=== PATIENT | female | born 1955 | race Caucasian/White ===

== ENCOUNTER 2016-10-08 08:58 | Inpatient (IN) | payer OTHER ==
[2016-10-08] MEDS ORDERED: SODIUM CHLORIDE 0.9% 10 ML FLUSH FLUSH PRN (09:07)
[2016-10-08] MEDS ORDERED: ASPIRIN 325 MG TAB PO ONE (09:08)
[2016-10-08] MEDS ORDERED: HYDROmorphone 1 MG INJECTION IV ONE (09:08)
[2016-10-08 09:15] LABS: ABG Draw Site Left Radial; ABG Draw Tech SI; ALLEN'S TEST PASS; BEb 7.5 (+/- 2); TCO2 39.4 MMOL/L (23-27)
[2016-10-08] MEDS ORDERED: KETOROLAC TROMETH 30 MG/ML VIAL IV ONE (09:16)
[2016-10-08] MEDS ORDERED: LORAZEPAM 2 MG/ML VIAL ONE (09:16)
[2016-10-08] MEDS ORDERED: KETOROLAC TROMETH 30 MG/ML VIAL ONE (09:16)
[2016-10-08] MEDS ORDERED: LORAZEPAM 2 MG/ML VIAL IV ONE (09:16)
--- NOTE | 2016-10-08 09:22 | EDPRACDOC ---
<Anatoliy Damico - Last Filed: 10/08/16 11:25> - History of Present Illness Onset: 3 DAYS HPI: PT PRESENTS TODAY WITH INCREASINGLY WORSE SHOB X 3 DAYS. PT HAS SEVERE COPD, WEARS 3 LITERS AT HOME AND CPAP AT NIGHT. EMS WAS CALLED AND PT WAS INITIALLY PUT ON NON-REBREATHER, THEN CPAP MACHINE, GIVEN 125 SOLUMEDROL AND DUONEB X 2. PT CURRENTLY SPEAKING IN 1 WORD SENTENCES. PT REPORTS INTERMITTENT SUBJECTIVE FEVERS AND ROGERS. PT DENIES CP, ABD PAIN, VOMITING/DIARRHEA. Shortness of Breath: Severe Relevant History: Reports: COPD Cough: Reports: Productive Rhinorrhea: Reports: None Ear Symptoms: Reports: None SOB Worsens with: Reports: Exertion SOB Improves with: Reports: Nothing Associated Signs and symptoms: Reports: Cough, Fever, Headache, Nausea <Keli Jackson - Last Filed: 10/08/16 11:41> - General Information Stated Complaint: BREATHING DIFFICULTY Time Seen by Provider: 10/08/16 09:06 Home Medications: Home Medications Budesonide/Formoterol Fumarate [Symbicort 160-4.5 Mcg Inhaler] 2 puff INH BID # 1 02/19/16 Fenofibrate [Tricor] 145 mg PO DAILY 03/31/16 Hydrocodone/Acetaminophen [Vicodin Es 7.5-300 mg Tablet] 1 tab PO Q6H PRN Lisinopril [Prinivil] 20 mg PO DAILY 03/31/16 Meloxicam [Mobic] 7.5 mg PO BID 03/31/16 Triamterene - Hctz [Maxzide 75/50] 1 tab PO DAILY 03/31/16 Albuterol/Ipratropium Neb [Duoneb] 3 ml NEB TID 10/08/16 Allopurinol 300 mg PO DAILY 10/08/16 Alprazolam 2 mg PO TID PRN 10/08/16 Fluticasone Propionate [Flonase Nasal [place]] 1 spray JORGITO BID 10/08/16 Glipizide [Glipizide ER] 2.5 mg PO DAILY 10/08/16 Montelukast Sodium [Singulair] 10 mg PO BID 10/08/16 Promethazine [Phenergan] 25 mg PO DAILY PRN 10/08/16 Theophylline [Ananda-Dur] 300 mg PO QID 10/08/16 Trazodone HCl 100 mg PO QHS 10/08/16 Allergies/Adverse Reactions: Allergies Allergy/AdvReac Type Severity Reaction Status Date / Time levofloxacin [From Levaquin] Allergy Edema-Oral/ Verified 10/08/16 09:10 Lip morphine Allergy See Verified 10/08/16 09:10 Comments - Treatment Prior to ED Arrival 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 Meds/Treatments Given CPAP EMS Treatment ALS IV Yes <Anatoliy Damico - Last Filed: 10/08/16 11:25> ED Past Medical History - History Reviewed Yes Nurses notes reviewed and agree except as marked - Patient Medical History Cardiac History: Reports: Hypertension, Hypercholesterolemia, Valvular Heart Disease Respiratory History: Reports: Asthma, COPD, Pneumonia, Emphysema GI/ History: Reports: Renal Disease (Chronic renal insufficiency by lab review.), Urinary Tract Infection, Gastroesophageal Reflux Musculoskeletal History: Reports: Arthritis, Gout, Osteoarthritis Psychological History: Reports: Depression, Anxiety. Denies: Substance Use Disorder Systemic History: Reports: Diabetes. Denies: Cancer Surgical History: Reports: Cholecystectomy (1975), Other (Bilateral salpingectomy 1977) - Family Medical History Reports: Hypertension (Mother, father and brother), Diabetes (Mother, father and brother.), Cancer (Nonspecified cancer in patient's mother.), Cardiac Disorders (Non-specified heart disease in father and paternal grandfather.), Respiratory Disorders (Asthma in mother and brother) - Social Medical History Smoking Status: Former smoker Social History: Denies: Substance Use Disorder <Keli Jackson - Last Filed: 10/08/16 11:41> EDM Review of Systems - Review of Systems ROS Negative Except as Marked: Yes All systems reviewed and were negative except as marked ROS Unobtainable: Yes Review of systems cannot be obtained due to the patient's medical condition Constitutional: Fever Ears: No Symptoms Reported Throat: No Symptoms Reported Nose: No Symptoms Reported Respiratory: Cough, Shortness of Breath, Wheezing Cardiovascular: No Symptoms Reported Gastrointestinal: Nausea Genitourinary: No Symptoms Reported Neurological: Headache Musculoskeletal: No Symptoms Reported Integumentary: No Symptoms Reported <Keli Jackson - Last Filed: 10/08/16 11:41> - Physical Exam Last recorded Vital Signs: Last Vital Signs Temp 101.0 F H 10/08/16 09:20 Pulse 120 H 10/08/16 10:33 Resp 22 10/08/16 10:33 BP 139/68 10/08/16 10:33 Pulse Ox 94 10/08/16 10:33 Oxygen Pulse Oxygen Saturation 94 O2 Device BiPAP Oxygen Flow Rate 3 Fraction of Inspired Oxygen ( FIO2) <Anatoliy Damico - Last Filed: 10/08/16 11:25> - Physical Exam Constitutional: Alert, Distress (TACHTPNEIC) Oriented to: Time, Person, Place Last recorded Vital Signs: Oxygen Pulse Oxygen Saturation O2 Device Oxygen Flow Rate Fraction of Inspired Oxygen ( FIO2) - HEENT Head: Normal Eye Exam: Normal Neck: Normal, Denies Pain, Midline - Respiratory/Cardiovascular Respiratory: Diminished, Rhonchi, Tachypnea, Wheezes Cardiovascular: Tachycardia - GI Palpation: Normal Tenderness: Non tender - Musculoskeletal Back: Normal Extremities: Normal - Integumentary Skin: Normal Lymphatics: Normal - Neurologic Mood Description: Anxious, Appropriate Thought: Coherent Perception: Normal <Keli Jackson - Last Filed: 10/08/16 11:41> ED SOB MDM - Re-evaluation Re-evaluation 1 Re-evaluation Time: 11:25 Re-evaluation: PT IMPROVED ON BIPAP. RESTING COMFORTABLY. - Results Result Diagrams: 10/08/16 09:08 10/08/16 09:08 Results: WBC 8.5 xk/uL (3.8-10.8) 10/08/16 09:08 RBC 4.55 xM/uL (4.20-5.40) 10/08/16 09:08 Hgb 13.2 g/dL (12.0-16.0) 10/08/16 09:08 Hct 41.3 % (36-47) 10/08/16 09:08 MCV 91 fL (81-99) 10/08/16 09:08 MCH 28.9 pg (27-32) 10/08/16 09:08 MCHC 31.9 g/dl (33-36) L 10/08/16 09:08 RDW 14.9 % (11.5-14.5) H 10/08/16 09:08 Plt Count 167 xk/uL (130-400) 10/08/16 09:08 MPV 7.5 fL (7.4-10.4) 10/08/16 09:08 Neut % (Auto) 63.6 % (45-76) 10/08/16 09:08 Lymph % (Auto) 23.4 % (17-44) 10/08/16 09:08 [place] % (Auto) 10.7 % (3-10) H 10/08/16 09:08 Eos % (Auto) 1.8 % (0-5) 10/08/16 09:08 Baso % (Auto) 0.5 % (0-2) 10/08/16 09:08 Absolute Neuts (auto) 5.36 xk/uL (1.7-8.2) 10/08/16 09:08 Absolute Lymphs (auto) 1.96 xk/uL (0.65-4.75) 10/08/16 09:08 PT 9.9 SEC (9.2-11.2) 10/08/16 09:08 INR 1.0 10/08/16 09:08 APTT 24.7 SEC (22-35) 10/08/16 09:08 Puncture Site Left radial 10/08/16 09:07 pH 7.290 pH UNITS (7.35-7.45) L 10/08/16 09:07 pCO2 77.0 mmHg (35-45) H* 10/08/16 09:07 pO2 59.0 mmHg (80-100) L 10/08/16 09:07 HCO3 37.0 MMOL/L (22-26) H 10/08/16 09:07 Total CO2 39.4 MMOL/L (23-27) H 10/08/16 09:07 Base Excess 7.5 (+/- 2) H 10/08/16 09:07 FiO2 % 2 l/m nc 10/08/16 09:07 Specimen Drawn By Si 10/08/16 09:07 Sodium 140 mEq/L (137-146) 10/08/16 09:08 Potassium 3.8 mEq/L (3.5-5.1) 10/08/16 09:08 Chloride 93 mEq/L (98-107) L 10/08/16 09:08 Carbon Dioxide 38 mMOL/L (22-33) H 10/08/16 09:08 Anion Gap 13 mEq/L (8-16) 10/08/16 09:08 BUN 23 MG/DL (7-17) H 10/08/16 09:08 Creatinine 0.70 MG/DL (0.52-1.04) 10/08/16 09:08 Estimated GFR (MDRD) > 60 mL/min (>=60) 10/08/16 09:08 Glucose 306 MG/DL (70-99) H 10/08/16 09:08 Calculated Osmolality 285 MOs/Kg (270-290) 10/08/16 09:08 Lactic Acid 2.5 mEq/L (0.7-2.1) H 10/08/16 09:08 Calcium 9.9 MG/DL (8.4-10.2) 10/08/16 09:08 Corrected Calcium 10.5 MG/DL (8.4-10.2) H 10/08/16 09:08 Total Bilirubin 0.4 MG/DL (0.2-1.3) 10/08/16 09:08 AST 21 IU/L (14-36) 10/08/16 09:08 ALT 36 IU/L (9-52) 10/08/16 09:08 Alkaline Phosphatase 88 IU/L (55-165) 10/08/16 09:08 Troponin I < 0.01 ng/mL (<.04) 10/08/16 09:08 Total Protein 7.1 G/DL (6.3-8.2) 10/08/16 09:08 Albumin 3.4 G/DL (3.5-5.0) L 10/08/16 09:08 Urine Color Yellow 10/08/16 09:25 Urine Clarity Sl cldy 10/08/16 09:25 Urine pH 6.0 (5.0-8.0) 10/08/16 09:25 Ur Specific [place] 1.030 (1.003-1.035) 10/08/16 09:25 Urine Protein 1+ (NEG/TRACE) H 10/08/16 09:25 Urine Glucose (UA) Trace (NEGATIVE) 10/08/16 09:25 Urine Ketones Neg (NEGATIVE) 10/08/16 09:25 Urine Occult Blood 1+ (NEG/TRACE) H 10/08/16 09:25 Urine Nitrite Neg (NEGATIVE) 10/08/16 09:25 Urine Bilirubin Neg (NEGATIVE) 10/08/16 09:25 Urine Urobilinogen <2.0 MG/DL (0-1) 10/08/16 09:25 Ur Leukocyte Esterase Neg (NEGATIVE) 10/08/16 09:25 Urine RBC 2-5 (0-5) 10/08/16 09:25 Urine WBC 2-5 (0-5) 10/08/16 09:25 Ur Epithelial Cells Occ 10/08/16 09:25 Amorphous Sediment 1+ 10/08/16 09:25 Urine Bacteria Few (NEG/FEW) 10/08/16 09:25 Granular Casts 0-2 (NONE) H 10/08/16 09:25 Urine Mucus Sm amt (NEG/OCC) 10/08/16 09:25 Lab Results 10/08/16 10/08/16 10/08/16 09:25 09:08 09:08 WBC RBC Hgb Hct MCV MCH MCHC RDW Plt Count MPV Neut % (Auto) Lymph % (Auto) [place] % (Auto) Eos % (Auto) Baso % (Auto) Absolute Neuts (auto) Absolute Lymphs (auto) PT 9.9 INR 1.0 APTT 24.7 Puncture Site pH pCO2 pO2 HCO3 Total CO2 Base Excess FiO2 % Specimen Drawn By Sodium Potassium Chloride Carbon Dioxide Anion Gap BUN Creatinine Estimated GFR (MDRD) Glucose Calculated Osmolality Lactic Acid 2.5 H Calcium Corrected Calcium Total Bilirubin AST ALT Alkaline Phosphatase Troponin I Total Protein Albumin Urine Color Yellow Urine Clarity Sl cldy Urine pH 6.0 Ur Specific [place] 1.030 Urine Protein 1+ H Urine Glucose (UA) Trace Urine Ketones Neg Urine Occult Blood 1+ H Urine Nitrite Neg Urine Bilirubin Neg Urine Urobilinogen <2.0 Ur Leukocyte Esterase Neg Urine RBC 2-5 Urine WBC 2-5 Ur Epithelial Cells Occ Amorphous Sediment 1+ Urine Bacteria Few Granular Casts 0-2 H Urine Mucus Sm amt 10/08/16 10/08/16 10/08/16 09:08 09:08 09:07 WBC 8.5 RBC 4.55 Hgb 13.2 Hct 41.3 MCV 91 MCH 28.9 MCHC 31.9 L RDW 14.9 H Plt Count 167 MPV 7.5 Neut % (Auto) 63.6 Lymph % (Auto) 23.4 [place] % (Auto) 10.7 H Eos % (Auto) 1.8 Baso % (Auto) 0.5 Absolute Neuts (auto) 5.36 Absolute Lymphs (auto) 1.96 PT INR APTT Puncture Site Left radial pH 7.290 L pCO2 77.0 H* pO2 59.0 L HCO3 37.0 H Total CO2 39.4 H Base Excess 7.5 H FiO2 % 2 l/m nc Specimen Drawn By Si Sodium 140 Potassium 3.8 Chloride 93 L Carbon Dioxide 38 H Anion Gap 13 BUN 23 H Creatinine 0.70 Estimated GFR (MDRD) > 60 Glucose 306 H Calculated Osmolality 285 Lactic Acid Calcium 9.9 Corrected Calcium 10.5 H Total Bilirubin 0.4 AST 21 ALT 36 Alkaline Phosphatase 88 Troponin I < 0.01 Total Protein 7.1 Albumin 3.4 L Urine Color Urine Clarity Urine pH Ur Specific [place] Urine Protein Urine Glucose (UA) Urine Ketones Urine Occult Blood Urine Nitrite Urine Bilirubin Urine Urobilinogen Ur Leukocyte Esterase Urine RBC Urine WBC Ur Epithelial Cells Amorphous Sediment Urine Bacteria Granular Casts Urine Mucus <Anatoliy Damico - Last Filed: 10/08/16 11:25> - Results Result Diagrams: 10/08/16 09:08 10/08/16 09:08 Results: Puncture Site Left radial 10/08/16 09:07 pH 7.290 pH UNITS (7.35-7.45) L 10/08/16 09:07 pCO2 77.0 mmHg (35-45) H* 10/08/16 09:07 pO2 59.0 mmHg (80-100) L 10/08/16 09:07 HCO3 37.0 MMOL/L (22-26) H 10/08/16 09:07 Total CO2 39.4 MMOL/L (23-27) H 10/08/16 09:07 Base Excess 7.5 (+/- 2) H 10/08/16 09:07 FiO2 % 2 l/m nc 10/08/16 09:07 Specimen Drawn By Si 10/08/16 09:07 Lab Results 10/08/16 09:07 Puncture Site Left radial pH 7.290 L pCO2 77.0 H* pO2 59.0 L HCO3 37.0 H Total CO2 39.4 H Base Excess 7.5 H FiO2 % 2 l/m nc Specimen Drawn By Si - EKG EKG #1 EKG Time: :08 -: Yes EKG interpreted by me Rate: bpm: 128 [place]: RAD Rhythm: ST Block: None Hypertrophy: None ST: Normal <Keli Jackson - Last Filed: 10/08/16 11:41> - Departure Yes I personally saw and evaluated the patient. Disposition: Admit IP To This Hospital - Physician Consulted Hospitalist Time Called: 10:51 Provider Called: Garrett Rees Time Bearing Ring [employer]er Returned Call: 10:52 <Anatoliy Damico - Last Filed: 10/08/16 11:25> - Departure Disposition: Admit IP To This Hospital Decision to Admit Time: 10:00 Decision to admit date: 10/08/16 Decision to admit: from ED <Keli Jackson - Last Filed: 10/08/16 11:41> - Departure Condition: Fair Final Diagnosis: Poorly controlled diabetes mellitus, Acute respiratory failure with hypoxia and hypercapnia, Acute respiratory acidosis Respiratory failure, [id number] Qualifiers: Respiratory failure complication: hypoxia and hypercapnia Qualified Code(s): J96.21 - Acute and chronic respiratory failure with hypoxia
[2016-10-08 09:42] LABS: BLOOD UREA NITROGEN 23 MG/DL (7-17); CALC CORRECTED 10.5 MG/DL (8.4-10.2); CALCIUM 9.9 MG/DL (8.4-10.2); CALCULATED OSMOLALITY 285 MOs/Kg (270-290); CHLORIDE 93 mEq/L (98-107); GLUCOSE 306 MG/DL (70-99); SODIUM LEVEL 140 mEq/L (137-146); TOTAL PROTEIN 7.1 G/DL (6.3-8.2)
--- NOTE | 2016-10-08 09:42 | DIRPT ---
CLINICAL DATA: Patient with chest pain. Shortness of breath. EXAM: PORTABLE CHEST 1 VIEW COMPARISON: Chest radiograph 06/01/2016. FINDINGS: Monitoring leads overlie the patient. Stable cardiac and mediastinal contours. Small left pleural effusion heterogeneous opacities within the left lung base. Minimal atelectasis right lung base. IMPRESSION: Chronic scarring within the left greater than right lung bases. Possible small left pleural effusion. Electronically Signed By: Ender Pino M.D. On: 10/08/2016 09:39
[2016-10-08 09:46] LABS: AMORPHOUS 1+; LEUKOCYTES/URINE NEG (NEGATIVE); NITRITE/URINE NEG (NEGATIVE); URINE OCCULT BLOOD 1+ (NEG/TRACE)
[2016-10-08 09:46] LABS: AUTOMATED BASOPHIL 0.5 % (0-2); AUTOMATED EOSINOPHIL 1.8 % (0-5); AUTOMATED LYMPH 23.4 % (17-44); AUTOMATED MONOCYTE 10.7 % (3-10); AUTOMATED NEUTROPHIL 63.6 % (45-76); MPV 7.5 fL (7.4-10.4)
[2016-10-08 09:51] LABS: PARTIAL THROMB. TIME 24.7 SEC (22-35)
[2016-10-08] MEDS ORDERED: ACETAMINOPHEN 325 MG/TAB TABLET PO ONE (10:01)
[2016-10-08] MEDS ORDERED: ACETAMINOPHEN 650 MG SUPP PR ONE (10:15)
[2016-10-08] MEDS ORDERED: NS 1,000 ML IV ONE (10:39)
[2016-10-08] MEDS ORDERED: GUAIFENESIN 200 MG/10 ML UDC PO PRN (11:41)
[2016-10-08] MEDS ORDERED: DEXTROSE 25 GM/50 ML PFS IV PRN (11:41)
[2016-10-08] MEDS ORDERED: Albuterol/Ipratropium Neb 3 ML NEB NEB PRN (11:41)
[2016-10-08] MEDS ORDERED: BISACODYL 5 MG TAB PO PRN (11:41)
[2016-10-08] MEDS ORDERED: PROMETHAZINE 25 MG/ML VIAL IV PRN (11:41)
[2016-10-08] MEDS ORDERED: ACETAMINOPHEN 325 MG/TAB TABLET PO PRN (11:41)
[2016-10-08] MEDS ORDERED: GLUCOSE (ORAL GEL) 15 GM TUBE PO PRN (11:41)
[2016-10-08] MEDS ORDERED: DOCUSATE-SENNA CONCENTRATE TAB PO PRN (11:41)
[2016-10-08] MEDS ORDERED: ACETAMINOPHEN 650 MG SUPP PR PRN (11:41)
[2016-10-08] MEDS ORDERED: BENZONATATE 100 MG PERLES PO PRN (11:41)
[2016-10-08] MEDS ORDERED: GLUCAGON 1 MG VIAL SQ PRN (11:41)
[2016-10-08] MEDS ORDERED: SODIUM CHLORIDE 0.9% 3 ML FLUSH FLUSH PRN (11:41)
[2016-10-08] MEDS ORDERED: ENALAPRILAT 1.25 MG/ML VIAL IV PRN (11:57)
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
[2016-10-08 12:20] LABS: ALLEN'S TEST PASS; BEb 5.6 (+/- 2); TCO2 38.6 MMOL/L (23-27)
[2016-10-08 12:21] LABS: ABG Draw Site Left Radial; ABG Draw Tech SI
[2016-10-08 12:22] LABS: MODE BIPAP 14/6 RATE
[2016-10-08] MEDS ORDERED: ETOMIDATE 20 MG/10 ML VIAL IV ONE (12:24)
[2016-10-08] MEDS ORDERED: SUCCINYLCHOLINE 20 MG/ML INJ 10 ML VIAL IV ONE (12:24)
[2016-10-08] MEDS ORDERED: FLUTICASONE PROPIONATE 16 GM BOT NAS SCH (13:00)
[2016-10-08] MEDS: D5-1/2NS/KCL 20 mEq 1,000 ML IV SCH ×2 (13:20→23:40)
[2016-10-08] MEDS: CEFTRIAXONE 1 GM in D5W 100 ML IV SCH (13:20)
[2016-10-08] MEDS: METHYLPREDNISOLONE 125 MG/2 ML VIAL IV SCH ×2 (13:21→17:29)
[2016-10-08] MEDS: NICOTINE 21 MG PATCH TOP SCH (13:23)
[2016-10-08] MEDS: Albuterol/Ipratropium Neb 3 ML NEB NEB SCH ×2 (13:37→20:52)
[2016-10-08] MEDS ORDERED: Vaccine Screening Complete SCH (14:00)
[2016-10-08] MEDS: AZITHROMYCIN 500 MG in D5W 250 ML IV SCH (14:20)
[2016-10-08] MEDS: FUROSEMIDE 40 MG/4 ML VIAL IV SCH (16:03)
[2016-10-08] MEDS: ENOXAPARIN 60 MG/0.6 ML PFS SQ SCH (17:30)
[2016-10-08] MEDS: REGULAR INSULIN 100 UNITS/ML - 3 ML VIAL SQ SCH ×2 (17:36→20:11)
[2016-10-08] MEDS: SODIUM CHLORIDE 0.9% 3 ML FLUSH FLUSH SCH (17:39)
[2016-10-08] MEDS: LORAZEPAM 2 MG/ML VIAL IV PRN (20:08)
[2016-10-08] MEDS: FLUTICASONE PROPIONATE 16 GM BOT NAS SCH (20:22)
[2016-10-09] MEDS: METHYLPREDNISOLONE 125 MG/2 ML VIAL IV SCH ×4 (00:25→16:49)
[2016-10-09] MEDS: CHLORHEXIDINE (HIBICLENS) 4 OZ BOTTLE TOP SCH ×2 (02:11→20:14)
[2016-10-09] MEDS: Albuterol/Ipratropium Neb 3 ML NEB NEB SCH ×4 (02:13→21:52)
[2016-10-09 05:22] LABS: MPV 7.4 fL (7.4-10.4)
[2016-10-09 05:33] LABS: BLOOD UREA NITROGEN 24 MG/DL (7-17); CALCULATED OSMOLALITY 288 MOs/Kg (270-290); CHLORIDE 95 mEq/L (98-107); GLUCOSE 330 MG/DL (70-99); SODIUM LEVEL 141 mEq/L (137-146)
[2016-10-09] MEDS: SODIUM CHLORIDE 0.9% 3 ML FLUSH FLUSH SCH ×2 (05:38→16:51)
[2016-10-09] MEDS: REGULAR INSULIN 100 UNITS/ML - 3 ML VIAL SQ SCH ×4 (05:46→20:23)
--- NOTE | 2016-10-09 07:57 | DIRPT ---
CLINICAL DATA: Pneumonia. EXAM: PORTABLE CHEST 1 VIEW COMPARISON: 10/08/2016, 02/12/2016, 5 06/2016, 07/14/2015. CT 03/31/2016. FINDINGS: Cardiomegaly with bilateral pulmonary vascular prominence. Persistent low lung volumes with basilar atelectasis. Left base pleural-parenchymal thickening most consistent with scarring. Small left pleural effusion cannot be excluded . IMPRESSION: 1. Cardiomegaly with mild pulmonary vascular prominence. 2. Low lung volumes with persistent left lung base pleural parenchymal scarring. Electronically Signed By: Jimmie Castanon On: 10/09/2016 07:54
[2016-10-09] MEDS: FUROSEMIDE 40 MG/4 ML VIAL IV SCH ×2 (08:37→16:48)
[2016-10-09] MEDS: D5-1/2NS/KCL 20 mEq 1,000 ML IV SCH (08:37)
[2016-10-09] MEDS: FLUTICASONE PROPIONATE 16 GM BOT NAS SCH ×2 (08:37→20:17)
[2016-10-09] MEDS: LORAZEPAM 2 MG/ML VIAL IV PRN (08:37)
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
[2016-10-09 09:23] LABS: ABG Draw Site Left Radial; ALLEN'S TEST PASS; TCO2 44.9 MMOL/L (23-27)
[2016-10-09 09:24] LABS: BI-PAP 20/8 cm H2O
[2016-10-09] MEDS ORDERED: ALPRAZOLAM 2 MG PO PRN (09:29)
[2016-10-09] MEDS ORDERED: HYDROCODONE 5 MG/ACETAMIN 325 MG TAB PO PRN (09:42)
[2016-10-09] MEDS ORDERED: LISINOPRIL 20 MG TAB PO SCH (10:00)
[2016-10-09] MEDS ORDERED: MONTELUKAST SODIUM 10 MG TAB PO SCH (10:00)
[2016-10-09] MEDS: TRIAMTERENE PO SCH (10:18)
[2016-10-09] MEDS: HCTZ PO SCH (10:18)
[2016-10-09] MEDS: NS/KCl 20 mEq 1,000 ML IV SCH ×2 (10:19→22:23)
[2016-10-09] MEDS: CEFTRIAXONE 1 GM in D5W 100 ML IV SCH (11:26)
[2016-10-09] MEDS: THEOPHYLLINE 300 MG PO SCH ×3 (11:29→20:16)
[2016-10-09] MEDS: NICOTINE 21 MG PATCH TOP SCH (11:29)
[2016-10-09] MEDS: AZITHROMYCIN 500 MG in D5W 250 ML IV SCH (13:28)
[2016-10-09] MEDS ORDERED: INSULIN DETEMIR 100 UNITS/ML PEN SQ SCH (16:00)
[2016-10-09] MEDS: ENOXAPARIN 60 MG/0.6 ML PFS SQ SCH (16:51)
[2016-10-09] MEDS: HYDROCODONE 5 MG/ACETAMIN 325 MG TAB PO PRN (17:02)
[2016-10-09] MEDS: Docusate Sodium 100 MG CAP PO SCH (20:11)
[2016-10-09] MEDS: BENZONATATE 100 MG PERLES PO SCH (20:11)
[2016-10-09] MEDS: DOCUSATE-SENNA CONCENTRATE TAB PO SCH (20:12)
[2016-10-09] MEDS: MONTELUKAST SODIUM 10 MG TAB PO SCH (20:13)
[2016-10-09] MEDS: TRAZODONE 100 MG TAB PO SCH (20:18)
[2016-10-09] MEDS: INSULIN DETEMIR 100 UNITS/ML PEN SQ SCH (20:22)
[2016-10-09] MEDS ORDERED: Non-Formulary Medication ITEM (Budesonide/Formoterol Fumarate [Symbicort 160-4.5 Mcg Inh INH SCH (21:00)
[2016-10-09] MEDS: BUDESONIDE 0.5 MG NEB NEB SCH ×2 (21:56→22:01)
[2016-10-09] MEDS: BUDESONIDE 0.25 MG NEB NEB SCH (22:06)
[2016-10-10] MEDS: METHYLPREDNISOLONE 125 MG/2 ML VIAL IV SCH ×4 (00:49→16:49)
[2016-10-10] MEDS: ALPRAZOLAM 0.5 MG TAB PO PRN (02:47)
[2016-10-10] MEDS: Albuterol/Ipratropium Neb 3 ML NEB NEB SCH ×4 (03:38→21:00)
[2016-10-10] MEDS: GLIPIZIDE XL 2.5 MG TAB PO SCH (05:32)
[2016-10-10] MEDS: BENZONATATE 100 MG PERLES PO SCH ×3 (05:33→20:34)
[2016-10-10] MEDS: SODIUM CHLORIDE 0.9% 3 ML FLUSH FLUSH SCH ×2 (05:37→16:49)
[2016-10-10] MEDS: REGULAR INSULIN 100 UNITS/ML - 3 ML VIAL SQ SCH ×4 (05:38→20:28)
[2016-10-10 05:55] LABS: ALLEN'S TEST PASS; BEb 12.9 (+/- 2); TCO2 43.8 MMOL/L (23-27)
[2016-10-10 06:03] LABS: ABG Draw Site Right Brachial
[2016-10-10 06:04] LABS: MODE BIPAP 20/8 RATE
[2016-10-10 06:04] LABS: AUTOMATED BASOPHIL 0.2 % (0-2); AUTOMATED LYMPH 7.1 % (17-44); AUTOMATED MONOCYTE 4.8 % (3-10); AUTOMATED NEUTROPHIL 87.9 % (45-76); MPV 7.6 fL (7.4-10.4)
[2016-10-10 06:51] LABS: BLOOD UREA NITROGEN 43 MG/DL (7-17); CALCIUM 8.8 MG/DL (8.4-10.2); CALCULATED OSMOLALITY 294 MOs/Kg (270-290); CHLORIDE 91 mEq/L (98-107); GLUCOSE 323 MG/DL (70-99); SODIUM LEVEL 141 mEq/L (137-146); THEOPHYLLINE LEVEL 9.4 MCG/ML (10-20)
[2016-10-10] MEDS: BUDESONIDE 0.5 MG NEB NEB SCH ×2 (07:39→20:59)
[2016-10-10] MEDS: BUDESONIDE 0.25 MG NEB NEB SCH ×2 (07:42→22:18)
[2016-10-10] MEDS: FUROSEMIDE 40 MG/4 ML VIAL IV SCH ×3 (08:01→20:42)
[2016-10-10] MEDS: ROFLUMILAST 500 MCG TAB PO SCH (08:02)
[2016-10-10] MEDS: LOSARTAN POTASSIUM 25 MG TAB PO SCH (08:02)
[2016-10-10] MEDS: DULOXETINE 60 MG CAPSULE PO SCH (08:02)
[2016-10-10] MEDS: FLUTICASONE PROPIONATE 16 GM BOT NAS SCH ×2 (08:03→20:22)
[2016-10-10] MEDS: HCTZ PO SCH (08:03)
[2016-10-10] MEDS: THEOPHYLLINE 300 MG PO SCH ×2 (08:03→20:34)
[2016-10-10] MEDS: TRIAMTERENE PO SCH (08:03)
[2016-10-10] MEDS: METOPROLOL (TOPROL-XL) 50 MG TAB PO SCH (08:03)
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
[2016-10-10] MEDS: NS/KCl 20 mEq 1,000 ML IV SCH (10:53)
[2016-10-10] MEDS: MAGNESIUM OXIDE 400 MG TAB PO SCH (14:02)
[2016-10-10] MEDS: CEFTRIAXONE 1 GM in D5W 100 ML IV SCH (14:03)
[2016-10-10] MEDS: CHOLECALCIFEROL 1000 UNITS TAB PO SCH (14:03)
[2016-10-10] MEDS: NICOTINE 21 MG PATCH TOP SCH (14:04)
[2016-10-10] MEDS: AZITHROMYCIN 500 MG in D5W 250 ML IV SCH (16:24)
[2016-10-10] MEDS: ENOXAPARIN 60 MG/0.6 ML PFS SQ SCH (16:49)
[2016-10-10] MEDS: ONDANSETRON HCL 4 MG/2 ML VIAL IV PRN (16:50)
--- NOTE | 2016-10-10 17:54 | HIMCONS ---
DATE OF CONSULT: REQUESTING PHYSICIAN: Parris Sanderson MD REASON FOR CONSULTATION: Respiratory failure. HISTORY OF PRESENT ILLNESS: The patient is a 61-year-old white lady, who has been a patient of [facility]. The patient has chronic COPD, has been on 3 L nasal cannula oxygen. She used to see me in my office, but has not seen me in a while. The patient according to herself was not feeling well for the past 3 weeks prior to her admission. She was given outpatient prednisone which did not help her, and eventually 3 days prior to her admission, her shortness of breath started getting worse along with headaches. She was also given Solu-Medrol and nebulizers en route to the hospital. She was on 100% non-rebreather and a blood gas showed a pH of 7.29 with CO2 of 77, and PO2 of 59. The patient has been using oxygen at home and also uses CPAP for her sleep apnea while she is sleeping at night. She was admitted for respiratory failure and was placed on antibiotics. Currently, the patient is feeling somewhat better as compared to when she came in; however, she remains on high doses of steroids along with antibiotics. PAST MEDICAL HISTORY: Significant for hypertension, hypercholesterolemia, valvular heart disease, COPD with history of pneumonia, history of chronic renal insufficiency, urinary tract infection, gastroesophageal reflux disease, gout, osteoarthritis, diabetes, depression, and anxiety. SURGICAL HISTORY: Significant for cholecystectomy in 1975 and bilateral salpingo-oophorectomy in 1977. ALLERGIES: THE PATIENT IS ALLERGIC TO LEVAQUIN AND MORPHINE. MEDICATIONS: In the chart were noted. FAMILY HISTORY: Significant for father having hypertension, diabetes, and nonspecific heart disease. Mother having asthma, hypertension, diabetes, cancer. SOCIAL HISTORY: The patient has been a former smoker. No history of alcohol or drug abuse. REVIEW OF SYSTEMS: Entire review of systems is negative except for those mentioned in the history of present illness. PHYSICAL EXAMINATION: VITAL SIGNS: Temperature is 97.5 degrees Fahrenheit, pulse is 82, respiratory rate is 22, blood pressure 127/82, pulse ox 99% on current 35% BiPAP. CHEST: Diffuse bilateral wheezing. HEART: S1, S2. Regular with pansystolic murmur. EXTREMITIES: No clubbing, cyanosis, or edema. ABDOMEN: Soft and nontender. Bowel sounds present. Hepatosplenomegaly is absent. NEURO: Grossly nonfocal. The patient is moving all extremities. LABORATORY DATA: White count 10.5, hemoglobin is 12.7, hematocrit 39.8, and platelets are 199. Blood gas showed a pH of 7.37, pCO2 of 72, PO2 of 69 with 20/8 BiPAP with 35% oxygen. Sodium 141, potassium 4.0, chloride 91, CO2 of 38, BUN 43, creatinine 0.8, glucose is 323, magnesium is 1.0 and calcium level is 9.4. IMPRESSION: 1. Vnfsc-go-oyuksdo respiratory failure. 2. Chronic obstructive pulmonary disease with exacerbation. 3. Diabetes. 4. Obstructive sleep apnea. 5. Hypertension. PLAN: I think the patient is on appropriate antibiotics at this time. She is on Rocephin and Zithromax along with vancomycin because of her MRSA PCR being positive. I will continue the current antibiotics that she needs to stay in negative balance as her chest x-ray shows possible pulmonary vascular congestion. Given 40 mg of Lasix q.12 hours. She is still positive today and I would increase the Lasix 40 mg IV q.8 hours. We will check BMP, ABG, and chest x-ray in the morning. Continue 20/8 BiPAP with 35% oxygen and Solu-Medrol 80 mg IV q.6 hours. Would try to cut it down in the morning. Continue BiPAP while the patient is in ICU as noninvasive ventilation. She remains critically ill and she is in danger of getting worse and getting intubated. I would follow the patient closely. Critical care time spent on the patient was approximately 90 minutes. [id number]
[2016-10-10] MEDS: INSULIN DETEMIR 100 UNITS/ML PEN SQ SCH (20:31)
[2016-10-10] MEDS: TRAZODONE 100 MG TAB PO SCH (20:33)
[2016-10-10] MEDS: Docusate Sodium 100 MG CAP PO SCH (20:33)
[2016-10-10] MEDS: DOCUSATE-SENNA CONCENTRATE TAB PO SCH (20:34)
[2016-10-10] MEDS: MONTELUKAST SODIUM 10 MG TAB PO SCH (20:34)
[2016-10-11] MEDS: NS/KCl 20 mEq 1,000 ML IV SCH ×2 (00:09→13:11)
[2016-10-11] MEDS: METHYLPREDNISOLONE 125 MG/2 ML VIAL IV SCH ×4 (00:10→17:47)
[2016-10-11] MEDS: ALPRAZOLAM 0.5 MG TAB PO PRN ×3 (02:39→21:01)
[2016-10-11] MEDS: Albuterol/Ipratropium Neb 3 ML NEB NEB SCH ×4 (03:06→19:53)
[2016-10-11 04:53] LABS: ALLEN'S TEST PASS; BEb 17.2 (+/- 2); TCO2 49.3 MMOL/L (23-27)
[2016-10-11 04:55] LABS: ABG Draw Site Left Radial; ABG Draw Tech BKL; BI-PAP 20/8 RATE 10 cm H2O
[2016-10-11] MEDS: CHLORHEXIDINE (HIBICLENS) 4 OZ BOTTLE TOP SCH (06:12)
[2016-10-11] MEDS: FUROSEMIDE 40 MG/4 ML VIAL IV SCH (06:13)
[2016-10-11] MEDS: SODIUM CHLORIDE 0.9% 3 ML FLUSH FLUSH SCH ×2 (06:14→17:47)
[2016-10-11] MEDS: GLIPIZIDE XL 2.5 MG TAB PO SCH (06:15)
[2016-10-11] MEDS: BENZONATATE 100 MG PERLES PO SCH ×3 (06:15→20:33)
[2016-10-11] MEDS: REGULAR INSULIN 100 UNITS/ML - 3 ML VIAL SQ SCH ×4 (06:15→20:31)
[2016-10-11 06:42] LABS: AUTOMATED BASOPHIL 0.7 % (0-2); AUTOMATED LYMPH 8.9 % (17-44); AUTOMATED MONOCYTE 5.1 % (3-10); AUTOMATED NEUTROPHIL 85.3 % (45-76); MPV 7.7 fL (7.4-10.4)
[2016-10-11 06:45] LABS: BLOOD UREA NITROGEN 47 MG/DL (7-17); CALCIUM 7.8 MG/DL (8.4-10.2); CALCULATED OSMOLALITY 283 MOs/Kg (270-290); CHLORIDE 88 mEq/L (98-107); GLUCOSE 266 MG/DL (70-99); SODIUM LEVEL 136 mEq/L (137-146)
--- NOTE | 2016-10-11 07:59 | DIRPT ---
CLINICAL DATA: Respiratory failure. EXAM: PORTABLE CHEST 1 VIEW COMPARISON: 10/09/2016. FINDINGS: Cardiomegaly with pulmonary vascular congestion and bilateral pulmonary interstitial prominence with bilateral pleural effusions, left side greater right again noted. Findings have progressed slightly from prior exam. Findings consistent congestive heart failure. Basilar pneumonia cannot be excluded. IMPRESSION: 1. Congestive heart failure with pulmonary interstitial edema and bilateral pleural effusions. Findings have progressed slightly from prior exam. 2. Bibasilar pneumonia cannot be excluded. Electronically Signed By: Jimmie Castanon On: 10/11/2016 07:56
--- NOTE | 2016-10-11 08:06 | PCM.PULM ---
Chief Complaint: Respiratory failure acute on chronic with hypercapnia and hypoxia COPD exacerbation Pneumonia Obstructive sleep apnea Hypoxia patient alert and responsive with mild distress requiring wearing BIPAP, clinically somewhat improved than yesterday Current complaints:SOB,HUTCHINSON,cough,wheeze. Medication list reviewed:yes Notes reviewed:yes Events from last night noted and discussed with Clinical Staff DVT/GI prophylaxis:yes - Physical Examination Vital Signs and I&O: Last Vital Signs Temp 98.5 F 10/11/16 03:00 Pulse 74 10/11/16 06:00 Resp 16 10/11/16 08:00 BP 147/67 10/11/16 06:00 Pulse Ox 97 10/11/16 08:00 Oxygen Pulse Oxygen Saturation 97 O2 Device BiPAP Oxygen Flow Rate Fraction of Inspired Oxygen ( 35 FIO2) Intake & Output 10/08/16 10/09/16 10/10/16 10/11/16 23:59 23:59 23:59 23:59 Intake Total 2288 2841 2677 1299 Output Total 4000 3700 750 900 Balance -8809 -263 4227 399 Patient's weight 105.2 kg 105.2 kg 104.19 kg 100.924 kg General: Alert, Oriented x3, Cooperative, Mild distress, Obese, Weakness, Fatigue Respiratory: Diminished, Wheezes (Occasional) Cardiovascular: Regular rate, Regular rate and rhythm, Normal S1, No Gallops, Rubs/Murmurs, Normal S2, Good Pedal Pulses (Dp pulses 2+ bilaterally) GI: Normal bowel sounds, Soft, Non tender, No hepatospenomegaly, No masses, Obese Extremities/Musculoskeletal: Normal pulses Skin: Warm,Dry and Intact, No rashes, No breakdown, No significant lesion Neurological: Normal Steady Gait, Normal speech, Cranial nerves 3-12 NL Psych/Mental Status: Appropriate, Cooperative Result Diagrams: 10/11/16 05:40 10/11/16 05:40 Labs (last 24 hours): Laboratory Results - last 24 hr 10/10/16 10/10/16 10/10/16 12:29 16:57 20:27 WBC RBC Hgb Hct MCV MCH MCHC RDW Plt Count MPV Neut % (Auto) Lymph % (Auto) Harney % (Auto) Eos % (Auto) Baso % (Auto) Absolute Neuts (auto) Absolute Lymphs (auto) Puncture Site pH pCO2 pO2 HCO3 Total CO2 Base Excess FiO2 % Mode BiPAP Specimen Drawn By Sodium Potassium Chloride Carbon Dioxide Anion Gap BUN Creatinine Estimated GFR (MDRD) Glucose POC Capillary Glucose 346 H 263 H 189 H Calculated Osmolality Calcium 10/11/16 10/11/16 10/11/16 04:50 05:40 05:40 WBC 9.3 RBC 4.01 L Hgb 11.5 L Hct 36.0 MCV 90 MCH 28.7 MCHC 31.9 L RDW 14.9 H Plt Count 193 MPV 7.7 Neut % (Auto) 85.3 H Lymph % (Auto) 8.9 L Harney % (Auto) 5.1 Eos % (Auto) 0.0 Baso % (Auto) 0.7 Absolute Neuts (auto) 7.91 Absolute Lymphs (auto) 0.74 Puncture Site Left radial pH 7.370 pCO2 81.0 H* pO2 79.0 L HCO3 46.8 H Total CO2 49.3 H Base Excess 17.2 H FiO2 % 35 Mode BiPAP 20/8 rate 10 Specimen Drawn By Bkl Sodium 136 L Potassium 3.7 Chloride 88 L Carbon Dioxide 39 H Anion Gap 13 BUN 47 H Creatinine 0.80 Estimated GFR (MDRD) > 60 Glucose 266 H POC Capillary Glucose Calculated Osmolality 283 Calcium 7.8 L 10/11/16 05:41 WBC RBC Hgb Hct MCV MCH MCHC RDW Plt Count MPV Neut % (Auto) Lymph % (Auto) Harney % (Auto) Eos % (Auto) Baso % (Auto) Absolute Neuts (auto) Absolute Lymphs (auto) Puncture Site pH pCO2 pO2 HCO3 Total CO2 Base Excess FiO2 % Mode BiPAP Specimen Drawn By Sodium Potassium Chloride Carbon Dioxide Anion Gap BUN Creatinine Estimated GFR (MDRD) Glucose POC Capillary Glucose 274 H Calculated Osmolality Calcium Lab/DI/Studies Reviewed: EKG: NSR, NO ST or ST wave changes noted Cxray: 1view Chest x-ray was seen personally patient seems to have bilateral effusions new fusion developing on the right side with pulmonary vascular congestion and pulmonary edema with bibasilar atelectasis and persistent left-sided infiltrate versus effusion Medications: Nicotine (Nicoderm) 21 mg TOP Q24H [facility] Stop: 10/22/16 12:59 Last Admin: 10/10/16 14:04 Dose: 21 mg Vancomycin HCl 2,000 mg/ (Dextrose) 520 mls @ 260 mls/hr IV Q12H [facility] Stop: 10/13/16 10:59 Last Admin: 10/11/16 00:10 Dose: 260 mls/hr Enoxaparin Sodium (Lovenox) 50 mg SQ Q24H [facility] Stop: 10/22/16 17:59 Last Admin: 10/10/16 16:49 Dose: 50 mg Furosemide (Lasix) 40 mg IV Q8 [facility] Stop: 10/24/16 21:59 Last Admin: 10/11/16 06:13 Dose: 40 mg Guaifenesin (Robitussin) 10 ml PO Q6H PRN PRN Reason: Cough - First Option Stop: 10/22/16 16:59 Insulin Detemir (Levemir) 15 units SQ QHS [facility] Stop: 10/23/16 20:59 Last Admin: 10/10/16 20:31 Dose: 15 units Insulin Human Regular (Humulin R) 0 units SQ ACHS [facility] PRN Reason: Protocol Stop: 10/24/16 16:59 Last Admin: 10/11/16 06:15 Dose: 12 units Acetaminophen (Tylenol Tablet) 650 mg PO Q6H PRN; Protocol PRN Reason: Mild Pain or Fever above 100.4 Stop: 10/22/16 16:59 Acetaminophen/Hydrocodone Bitart (Hydrocodone 5 Mg/Acetamin 325 Mg) 1.5 tab PO Q12H PRN PRN Reason: moderate to severe pain Stop: 10/23/16 15:34 Last Admin: 10/09/16 17:02 Dose: 1.5 tab Albuterol/Ipratropium (Duoneb) 3 ml NEB Q2H PRN PRN Reason: Wheezing Stop: 10/22/16 16:59 Alprazolam (Xanax) 2 mg PO TID PRN PRN Reason: Anxiety-1ST Stop: 10/23/16 09:38 Last Admin: 10/11/16 02:39 Dose: 2 mg Aspirin (Ecotrin) 81 mg PO DAILY [facility] Stop: 10/24/16 08:59 Last Admin: 10/10/16 08:02 Dose: 81 mg Azithromycin 500 mg/ Dextrose 250 mls @ 250 mls/hr IV Q24H [facility] Stop: 10/13/16 13:59 Last Admin: 10/10/16 16:24 Dose: 250 mls/hr Benzonatate (Tessalon) 200 mg PO TID PRN PRN Reason: Cough - Alternative Stop: 10/22/16 16:59 Benzonatate (Tessalon) 100 mg PO TID [facility] Stop: 10/23/16 20:59 Last Admin: 10/11/16 06:15 Dose: 100 mg Budesonide (Pulmicort) 0.5 mg NEB RTBID [facility] Stop: 10/23/16 19:59 Last Admin: 10/11/16 08:07 Dose: 0.5 mg Ceftriaxone Sodium 1 gm/ (Dextrose) 100 mls @ 200 mls/hr IV Q24H [facility] Stop: 10/15/16 16:59 Last Admin: 10/10/16 14:03 Dose: 200 mls/hr Cholecalciferol (Vitamin D) 2,000 units PO DAILY@1200 [facility] Stop: 10/24/16 11:59 Last Admin: 10/10/16 14:03 Dose: Not Given Duloxetine HCl (Cymbalta) 60 mg PO DAILY [facility] Stop: 10/24/16 08:59 Last Admin: 10/10/16 08:02 Dose: 60 mg Enalaprilat (Vasotec) 1.25 mg IV Q6H PRN PRN Reason: SBP Above 170 Stop: 10/22/16 16:59 Lorazepam (Ativan) 1 mg IV Q6H PRN PRN Reason: Anxiety or Agitation-ALT Stop: 10/22/16 16:59 Last Admin: 10/09/16 08:37 Dose: 1 mg Losartan Potassium (Cozaar) 25 mg PO DAILY [facility] Stop: 10/24/16 08:59 Last Admin: 10/10/16 08:02 Dose: 25 mg Methylprednisolone Sodium Succinate (Solu-Medrol) 80 mg IV Q6H [facility] Stop: 10/22/16 16:59 Last Admin: 10/11/16 06:12 Dose: 80 mg Metoprolol Succinate (Toprol Xl) 50 mg PO DAILY [facility] Stop: 10/24/16 08:59 Last Admin: 10/10/16 08:03 Dose: 50 mg Montelukast Sodium (Singulair) 10 mg PO HS [facility] Stop: 10/23/16 16:59 Last Admin: 10/10/16 20:34 Dose: Not Given Potassium Chloride/Sodium Chloride (Normal Saline-Kcl 20 Meq Per 1000 Ml) 1, 000 mls @ 80 mls/hr IV Q12H [facility] Stop: 10/23/16 16:59 Last Admin: 10/11/16 00:09 Dose: 80 mls/hr Roflumilast (Daliresp) 500 mcg PO DAILY [facility] Stop: 10/24/16 08:59 Last Admin: 10/10/16 08:02 Dose: 500 mcg Promethazine HCl (Phenergan) 12.5 mg IV Q6H PRN; Protocol PRN Reason: Nausea/Vomiting - Alternative Stop: 10/22/16 16:59 Theophylline (Ananda-Dur) 300 mg PO BID [facility] Stop: 10/23/16 16:59 Last Admin: 10/10/16 20:34 Dose: Not Given Triamterene/HCTZ (Maxzide 75/50) 1 tab PO DAILY [facility] Stop: 10/23/16 09:59 Last Admin: 10/10/16 08:03 Dose: 1 tab Trazodone HCl (Desyrel) 100 mg PO QHS [facility] Stop: 10/23/16 20:59 Last Admin: 10/10/16 20:33 Dose: Not Given - Assessment/Plan (1) Acute respiratory failure with hypoxia and hypercapnia Acute J96.01 - ACUTE RESPIRATORY FAILURE WITH HYPOXIA; J96.02 - ACUTE RESPIRATORY FAILURE WITH HYPERCAPNIA Comment/Plan: Patient seems to be improving slowly I would continue the current antibiotics nebulizers DVT GI prophylaxis Solu-Medrol oxygen and BiPAP I think patient can come off for BiPAP for 2 3 hours and be back on BiPAP during the day as a pH seems to be relatively stable her CO2 seems to be high however because the stable pH I would attempt to do 3 hours on an 3 hours off of BiPAP during the day and keep her on BiPAP all night I had a prolonged discussion with the nursing staff regarding this issue chest x-ray shows pulmonary vascular congestion and patient has been on Lasix 40 mg IV q.8 hours and continues to have positive fluid balance I would start the patient on Lasix drip and would follow the creatinine closely patient remains critically ill in the view of her worsening chest x-ray would keep her in ICU (2) Acute exacerbation of chronic obstructive airways disease Acute J44.1 - CHRONIC OBSTRUCTIVE PULMONARY DISEASE W (ACUTE) EXACERBATION Comment/Plan: Continue steroids and antibiotics (3) Bacterial pneumonia Acute J15.9 - UNSPECIFIED BACTERIAL PNEUMONIA Comment/Plan: Continue the current antibiotics would repeat a chest x-ray and a blood gas in the morning (4) Hypoxia Acute R09.02 - HYPOXEMIA Comment/Plan: Continue oxygen with BiPAP 3 hours on an 3 hours off during the day (5) Obstructive sleep apnea (adult) (pediatric) Acute G47.33 - OBSTRUCTIVE SLEEP APNEA (ADULT) (PEDIATRIC) Comment/Plan: Continue BiPAP while patient is sleeping I personally saw and evaluated the patient.: Yes Total Face to Face Time: 35 minutes Case Care Discussed with: Patient, Nursing Staff Education/Counseling Given To: Patient Education/Counseling Given Regarding: Diagnosis, Treatment, Prognosis, Follow Up , Disposition Plan
[2016-10-11] MEDS: BUDESONIDE 0.5 MG NEB NEB SCH ×2 (08:07→19:57)
[2016-10-11] MEDS: BUDESONIDE 0.25 MG NEB NEB SCH ×2 (08:13→19:58)
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
[2016-10-11] MEDS: ONDANSETRON HCL 4 MG/2 ML VIAL IV PRN ×2 (11:38→20:40)
[2016-10-11] MEDS: CEFTRIAXONE 1 GM in D5W 100 ML IV SCH (11:38)
[2016-10-11] MEDS: AZITHROMYCIN 500 MG in D5W 250 ML IV SCH (15:46)
[2016-10-11] MEDS: NICOTINE 21 MG PATCH TOP SCH (15:46)
[2016-10-11] MEDS: LOSARTAN POTASSIUM 25 MG TAB PO SCH (15:47)
[2016-10-11] MEDS: METOPROLOL (TOPROL-XL) 50 MG TAB PO SCH (15:47)
[2016-10-11] MEDS: Furosemide 100 MG in NS 40 ML IV SCH (15:47)
[2016-10-11] MEDS: FLUTICASONE PROPIONATE 16 GM BOT NAS SCH ×2 (15:48→20:31)
[2016-10-11] MEDS: ROFLUMILAST 500 MCG TAB PO SCH (15:48)
[2016-10-11] MEDS: DULOXETINE 60 MG CAPSULE PO SCH (15:48)
[2016-10-11] MEDS: HCTZ PO SCH (15:48)
[2016-10-11] MEDS: TRIAMTERENE PO SCH (15:48)
[2016-10-11] MEDS: THEOPHYLLINE 300 MG PO SCH ×2 (15:49→20:47)
[2016-10-11] MEDS: CHOLECALCIFEROL 1000 UNITS TAB PO SCH (15:49)
[2016-10-11] MEDS: MAGNESIUM OXIDE 400 MG TAB PO SCH (15:49)
[2016-10-11] MEDS: ENOXAPARIN 60 MG/0.6 ML PFS SQ SCH (17:47)
[2016-10-11 18:37] LABS: A-1-ANTITRYPSIN 153 mg/dL (90-200)
[2016-10-11] MEDS: Docusate Sodium 100 MG CAP PO SCH (20:30)
[2016-10-11] MEDS: TRAZODONE 100 MG TAB PO SCH (20:30)
[2016-10-11] MEDS: MONTELUKAST SODIUM 10 MG TAB PO SCH (20:32)
[2016-10-11] MEDS: DOCUSATE-SENNA CONCENTRATE TAB PO SCH (20:32)
[2016-10-11] MEDS: INSULIN DETEMIR 100 UNITS/ML PEN SQ SCH (20:32)
[2016-10-12] MEDS: METHYLPREDNISOLONE 125 MG/2 ML VIAL IV SCH ×4 (00:33→16:19)
[2016-10-12] MEDS: Furosemide 100 MG in NS 40 ML IV SCH ×3 (00:54→20:47)
[2016-10-12] MEDS: Albuterol/Ipratropium Neb 3 ML NEB NEB SCH ×4 (01:31→21:26)
[2016-10-12] MEDS: LORAZEPAM 2 MG/ML VIAL IV PRN (03:17)
[2016-10-12 04:19] LABS: ABG Draw Site Right Brachial; ALLEN'S TEST PASS; BEb 22.1 (+/- 2); TCO2 52.3 MMOL/L (23-27)
[2016-10-12 04:20] LABS: BI-PAP 20/8 cm H2O
[2016-10-12] MEDS: BENZONATATE 100 MG PERLES PO SCH ×3 (05:39→20:46)
[2016-10-12] MEDS: CHLORHEXIDINE (HIBICLENS) 4 OZ BOTTLE TOP SCH ×2 (05:39→20:49)
[2016-10-12] MEDS: SODIUM CHLORIDE 0.9% 3 ML FLUSH FLUSH SCH ×2 (05:40→16:18)
[2016-10-12] MEDS: GLIPIZIDE XL 2.5 MG TAB PO SCH (05:40)
[2016-10-12] MEDS: REGULAR INSULIN 100 UNITS/ML - 3 ML VIAL SQ SCH ×4 (05:40→21:53)
[2016-10-12 05:47] VITALS: BMI 44.9
[2016-10-12 06:10] LABS: MPV 8.1 fL (7.4-10.4)
[2016-10-12 06:35] LABS: BLOOD UREA NITROGEN 59 MG/DL (7-17); CALCIUM 8.7 MG/DL (8.4-10.2); CALCULATED OSMOLALITY 286 MOs/Kg (270-290); CHLORIDE 82 mEq/L (98-107); GLUCOSE 253 MG/DL (70-99); SODIUM LEVEL 135 mEq/L (137-146)
[2016-10-12 08:06] LABS: SEG NEUTROPHIL 78 % (45-76)
[2016-10-12] MEDS: THEOPHYLLINE 300 MG PO SCH ×2 (08:09→20:46)
[2016-10-12] MEDS: LOSARTAN POTASSIUM 25 MG TAB PO SCH (08:10)
[2016-10-12] MEDS: DULOXETINE 60 MG CAPSULE PO SCH (08:10)
[2016-10-12] MEDS: FLUTICASONE PROPIONATE 16 GM BOT NAS SCH ×2 (08:12→20:48)
[2016-10-12] MEDS: HCTZ PO SCH (08:12)
[2016-10-12] MEDS: TRIAMTERENE PO SCH (08:12)
[2016-10-12] MEDS: BUDESONIDE 0.5 MG NEB NEB SCH ×3 (08:48→22:05)
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
[2016-10-12] MEDS: BUDESONIDE 0.25 MG NEB NEB SCH ×2 (10:19→22:04)
[2016-10-12] MEDS: MAGNESIUM OXIDE 400 MG TAB PO SCH ×2 (10:58→16:14)
[2016-10-12] MEDS: METOPROLOL (TOPROL-XL) 50 MG TAB PO SCH (10:58)
[2016-10-12] MEDS: Magnesium Sulfate 2 gm/D5W 2 GM/50 ML RTU IV SCH ×2 (10:58→14:58)
[2016-10-12] MEDS: ROFLUMILAST 500 MCG TAB PO SCH (10:59)
[2016-10-12] MEDS ORDERED: Medication Special Instructions SCH ×2 (11:00)
[2016-10-12] MEDS ORDERED: ONDANSETRON HCL 4 MG ODT TAB PO PRN (11:00)
[2016-10-12] MEDS: CEFTRIAXONE 1 GM in D5W 100 ML IV SCH (11:30)
[2016-10-12] MEDS: MetFORMIN, EXT REL 500 MG TAB PO SCH ×2 (11:40→16:16)
[2016-10-12] MEDS: CHOLECALCIFEROL 1000 UNITS TAB PO SCH (11:40)
[2016-10-12] MEDS: Linezolid 600 mg/300 ml Premix 600 MG/300 ML RTU IV SCH ×2 (13:11→22:52)
[2016-10-12] MEDS: NICOTINE 21 MG PATCH TOP SCH (13:16)
--- NOTE | 2016-10-12 14:11 | PCM.PULM ---
Chief Complaint: Patient in Intensive care unit with no acute distress. Breathing is improving. On oxygen via nasal cannula and wears BIPAP at night and PRN Medication list and notes reviewed:yes DVT/GI prophylaxis:yes - Physical Examination Vital Signs and I&O: Last Vital Signs Temp 98.5 F 10/12/16 11:00 Pulse 83 10/12/16 13:00 Resp 22 10/12/16 13:00 BP 114/54 L 10/12/16 13:00 Pulse Ox 90 L 10/12/16 13:00 Oxygen Pulse Oxygen Saturation 90 O2 Device Nasal Cannula Oxygen Flow Rate 3 Fraction of Inspired Oxygen ( 35 FIO2) Intake & Output 10/09/16 10/10/16 10/11/16 10/12/16 23:59 23:59 23:59 23:59 Intake Total 2841 2677 2181 716 Output Total 3700 750 3500 1700 Balance -859 1927 -1319 -984 Patient's weight 105.2 kg 104.19 kg 100.924 kg 100.924 kg General: Alert, Oriented x3, No acute distress, Obese, Fatigue Respiratory: Diminished Cardiovascular: Regular rate, Regular rate and rhythm, Normal S1, No Gallops, Rubs/Murmurs, Normal S2 GI: Normal bowel sounds, Soft, Non tender, No hepatospenomegaly, No masses, Obese Extremities/Musculoskeletal: Normal pulses Skin: Warm,Dry and Intact, No rashes, No breakdown, No significant lesion Neurological: Normal Steady Gait, Normal speech, Strength at 5/5 X4 ext, Normal tone, Cranial nerves 3-12 NL Psych/Mental Status: Cooperative Result Diagrams: 10/12/16 05:35 10/12/16 05:35 Labs (last 24 hours): Laboratory Results - last 24 hr 10/12/16 10/12/16 10/12/16 04:15 05:24 05:35 WBC 11.7 H RBC 4.19 L Hgb 12.2 Hct 37.6 MCV 90 MCH 29.1 MCHC 32.4 L RDW 14.7 H Plt Count 238 MPV 8.1 Neut % (Auto) Cancelled Lymph % (Auto) Cancelled [place] % (Auto) Cancelled Eos % (Auto) Cancelled Baso % (Auto) Cancelled Absolute Neuts (auto) Cancelled Absolute Lymphs (auto) Cancelled Seg Neuts % (Manual) 78 H Band Neutrophils % 6 H Lymphocytes % (Manual) 12 L Monocytes % (Manual) 4 Absolute Neutrophils 9.83 H Absolute Lymphocytes 1.40 Platelet Estimate Occ giant platelet RBC Morphology Norm Puncture Site Right brachial pH 7.470 H pCO2 69.0 H* pO2 72.0 L HCO3 50.2 H Total CO2 52.3 H Base Excess 22.1 H FiO2 % .35 Mode BiPAP 20/8 Specimen Drawn By Baras Sodium Potassium Chloride Carbon Dioxide Anion Gap BUN Creatinine Estimated GFR (MDRD) Glucose POC Capillary Glucose 261 H Calculated Osmolality Calcium Magnesium Urrzo-7-Qkgpvmzkgry Alpha-1-AT Phenotype Random Vancomycin 10/12/16 10/12/16 05:35 12:16 WBC RBC Hgb Hct MCV MCH MCHC RDW Plt Count MPV Neut % (Auto) Lymph % (Auto) [place] % (Auto) Eos % (Auto) Baso % (Auto) Absolute Neuts (auto) Absolute Lymphs (auto) Seg Neuts % (Manual) Band Neutrophils % Lymphocytes % (Manual) Monocytes % (Manual) Absolute Neutrophils Absolute Lymphocytes Platelet Estimate RBC Morphology Puncture Site pH pCO2 pO2 HCO3 Total CO2 Base Excess FiO2 % Mode BiPAP Specimen Drawn By Sodium 135 L Potassium 3.9 Chloride 82 L Carbon Dioxide 42 H Anion Gap 15 BUN 59 H Creatinine 1.10 H Estimated GFR (MDRD) 50 L Glucose 253 H POC Capillary Glucose 295 H Calculated Osmolality 286 Calcium 8.7 Magnesium 1.50 L Ciwyf-1-Uaoiiccsaun Alpha-1-AT Phenotype Random Vancomycin 17.0 Lab/DI/Studies Reviewed: EKG: NSR, NO ST or ST wave changes noted Medications: Nicotine (Nicoderm) 21 mg TOP Q24H [facility] Stop: 10/22/16 12:59 Last Admin: 10/10/16 14:04 Dose: 21 mg Guaifenesin (Robitussin) 10 ml PO Q6H PRN PRN Reason: Cough - First Option Stop: 10/22/16 16:59 Insulin Detemir (Levemir) 15 units SQ QHS [facility] Stop: 10/23/16 20:59 Last Admin: 10/10/16 20:31 Dose: 15 units Insulin Human Regular (Humulin R) 0 units SQ ACHS [facility] PRN Reason: Protocol Stop: 10/24/16 16:59 Last Admin: 10/11/16 06:15 Dose: 12 units Acetaminophen (Tylenol Tablet) 650 mg PO Q6H PRN; Protocol PRN Reason: Mild Pain or Fever above 100.4 Stop: 10/22/16 16:59 Acetaminophen/Hydrocodone Bitart (Hydrocodone 5 Mg/Acetamin 325 Mg) 1.5 tab PO Q12H PRN PRN Reason: moderate to severe pain Stop: 10/23/16 15:34 Last Admin: 10/09/16 17:02 Dose: 1.5 tab Albuterol/Ipratropium (Duoneb) 3 ml NEB Q2H PRN PRN Reason: Wheezing Stop: 10/22/16 16:59 Aspirin (Ecotrin) 81 mg PO DAILY [facility] Stop: 10/24/16 08:59 Last Admin: 10/10/16 08:02 Dose: 81 mg Azithromycin 500 mg/ Dextrose 250 mls @ 250 mls/hr IV Q24H [facility] Stop: 10/13/16 13:59 Last Admin: 10/10/16 16:24 Dose: 250 mls/hr Benzonatate (Tessalon) 200 mg PO TID PRN PRN Reason: Cough - Alternative Stop: 10/22/16 16:59 Benzonatate (Tessalon) 100 mg PO TID [facility] Stop: 10/23/16 20:59 Last Admin: 10/11/16 06:15 Dose: 100 mg Ceftriaxone Sodium 1 gm/ (Dextrose) 100 mls @ 200 mls/hr IV Q24H [facility] Stop: 10/15/16 16:59 Last Admin: 10/10/16 14:03 Dose: 200 mls/hr Cholecalciferol (Vitamin D) 2,000 units PO DAILY@1200 [facility] Stop: 10/24/16 11:59 Last Admin: 10/10/16 14:03 Dose: Not Given Duloxetine HCl (Cymbalta) 60 mg PO DAILY [facility] Stop: 10/24/16 08:59 Last Admin: 10/10/16 08:02 Dose: 60 mg Enalaprilat (Vasotec) 1.25 mg IV Q6H PRN PRN Reason: SBP Above 170 Stop: 10/22/16 16:59 Losartan Potassium (Cozaar) 25 mg PO DAILY [facility] Stop: 10/24/16 08:59 Last Admin: 10/10/16 08:02 Dose: 25 mg Methylprednisolone Sodium Succinate (Solu-Medrol) 80 mg IV Q6H [facility] Stop: 10/22/16 16:59 Last Admin: 10/11/16 06:12 Dose: 80 mg Metoprolol Succinate (Toprol Xl) 50 mg PO DAILY [facility] Stop: 10/24/16 08:59 Last Admin: 10/10/16 08:03 Dose: 50 mg Montelukast Sodium (Singulair) 10 mg PO HS [facility] Stop: 10/23/16 16:59 Last Admin: 10/10/16 20:34 Dose: Not Given Roflumilast (Daliresp) 500 mcg PO DAILY [facility] Stop: 10/24/16 08:59 Last Admin: 10/10/16 08:02 Dose: 500 mcg Promethazine HCl (Phenergan) 12.5 mg IV Q6H PRN; Protocol PRN Reason: Nausea/Vomiting - Alternative Stop: 10/22/16 16:59 Theophylline (Ananda-Dur) 300 mg PO BID [facility] Stop: 10/23/16 16:59 Last Admin: 10/10/16 20:34 Dose: Not Given Trazodone HCl (Desyrel) 100 mg PO QHS [facility] Stop: 10/23/16 20:59 Last Admin: 10/10/16 20:33 Dose: Not Given Azithromycin 500 mg/ Dextrose 250 mls @ 250 mls/hr IV Q24H [facility] Stop: 10/12/16 18:00 Last Admin: 10/12/16 16:02 Dose: 250 mls/hr Budesonide (Pulmicort) 0.5 mg NEB RTBID [facility] Stop: 10/23/16 19:59 Last Admin: 10/12/16 08:48 Dose: 0.5 mg Ceftriaxone Sodium 1 gm/ (Dextrose) 100 mls @ 200 mls/hr IV Q24H [facility] Stop: 10/14/16 18:00 Last Admin: 10/12/16 11:30 Dose: 200 mls/hr Enoxaparin Sodium (Lovenox) 50 mg SQ Q24H [facility] Stop: 10/22/16 17:59 Last Admin: 10/12/16 16:15 Dose: 50 mg Furosemide 100 mg/ Sodium (Chloride) 50 mls @ 5 mls/hr IV Q10H [facility]; 10 MG/HR PRN Reason: Protocol Stop: 10/25/16 16:59 Last Admin: 10/12/16 11:32 Dose: 5 mls/hr Linezolid (Zyvox 600 Mg/300 Ml Premix) 600 mg in 300 mls @ 150 mls/hr IV Q12H [facility] Stop: 10/15/16 16:59 Last Admin: 10/12/16 13:11 Dose: 150 mls/hr Triamterene/HCTZ (Maxzide 75/50) 1 tab PO DAILY [facility] Stop: 10/23/16 09:59 Last Admin: 10/12/16 08:12 Dose: 1 tab - Assessment/Plan (1) Acute respiratory failure with hypoxia and hypercapnia Acute J96.01 - ACUTE RESPIRATORY FAILURE WITH HYPOXIA; J96.02 - ACUTE RESPIRATORY FAILURE WITH HYPERCAPNIA Comment/Plan: Patient breathing is improving. not much of wheezing. Would cut steroid down to 40mg Q8h. Would get an ABG and cxray in am. Would continue BIPAP at night and prn, supplemental oxygen, IV lasix, patient was placed on linezolid along with Rocephin I would discontinue Rocephin and start Zithromax instead to cover atypical bacteria since there are no cultures back yet would repeat a chest x- ray in the morning, Duo nebulizer treatment, DVT/GI prophylaxis and other supportive care at this time. (2) Acute exacerbation of chronic obstructive airways disease Acute J44.1 - CHRONIC OBSTRUCTIVE PULMONARY DISEASE W (ACUTE) EXACERBATION Comment/Plan: Improving. Would cut steroid down. Continue current medication therapy and full supportive care (3) Bacterial pneumonia Acute J15.9 - UNSPECIFIED BACTERIAL PNEUMONIA Comment/Plan: Continue the current antibiotics would get a chest x-ray and ABG in the morning (4) Hypoxia Acute R09.02 - HYPOXEMIA Comment/Plan: Improving. Continue BIPAP and supplemental oxygen PRN (5) Obstructive sleep apnea (adult) (pediatric) Acute G47.33 - OBSTRUCTIVE SLEEP APNEA (ADULT) (PEDIATRIC) Comment/Plan: Continue BiPAP while patient is sleeping and PRN I personally saw and evaluated the patient.: Yes Total Face to Face Time: 35 minutes Case Care Discussed with: Patient, Nursing Staff Education/Counseling Given To: Patient Education/Counseling Given Regarding: Diagnosis, Treatment, Prognosis, Follow Up
[2016-10-12] MEDS: AZITHROMYCIN 500 MG in D5W 250 ML IV SCH (16:02)
[2016-10-12] MEDS: ENOXAPARIN 60 MG/0.6 ML PFS SQ SCH (16:15)
[2016-10-12] MEDS: Docusate Sodium 100 MG CAP PO SCH (20:46)
[2016-10-12] MEDS: DOCUSATE-SENNA CONCENTRATE TAB PO SCH (20:46)
[2016-10-12] MEDS: MONTELUKAST SODIUM 10 MG TAB PO SCH (20:46)
[2016-10-12] MEDS: INSULIN DETEMIR 100 UNITS/ML PEN SQ SCH (20:49)
[2016-10-12] MEDS: HYDROCODONE 5 MG/ACETAMIN 325 MG TAB PO PRN (22:49)
[2016-10-12] MEDS: ALPRAZOLAM 0.5 MG TAB PO PRN (22:49)
[2016-10-12] MEDS: METHYLPREDNISOLONE 40 MG/1 ML VIAL IV SCH (22:51)
[2016-10-13] MEDS: Albuterol/Ipratropium Neb 3 ML NEB NEB SCH ×4 (02:07→20:55)
[2016-10-13] MEDS: BENZONATATE 100 MG PERLES PO SCH ×3 (05:00→21:42)
[2016-10-13] MEDS: SODIUM CHLORIDE 0.9% 3 ML FLUSH FLUSH SCH ×2 (05:01→17:49)
[2016-10-13 05:07] LABS: MPV 7.8 fL (7.4-10.4)
[2016-10-13 05:11] LABS: BLOOD UREA NITROGEN 78 MG/DL (7-17); CALCIUM 9.1 MG/DL (8.4-10.2); CALCULATED OSMOLALITY 280 MOs/Kg (270-290); CHLORIDE 76 mEq/L (98-107); GLUCOSE 162 MG/DL (70-99); SODIUM LEVEL 131 mEq/L (137-146)
[2016-10-13 05:36] LABS: ALLEN'S TEST PASS; BEb 23.9 (+/- 2); TCO2 54.2 MMOL/L (23-27)
[2016-10-13 05:38] LABS: ABG Draw Site Left Brachial
[2016-10-13 06:58] LABS: SEG NEUTROPHIL 84 % (45-76)
[2016-10-13] MEDS: Furosemide 100 MG in NS 40 ML IV SCH ×2 (06:58→15:28)
[2016-10-13] MEDS: REGULAR INSULIN 100 UNITS/ML - 3 ML VIAL SQ SCH ×4 (06:59→20:38)
[2016-10-13] MEDS: MetFORMIN, EXT REL 500 MG TAB PO SCH (06:59)
[2016-10-13] MEDS: GLIPIZIDE XL 2.5 MG TAB PO SCH (06:59)
[2016-10-13] MEDS: BUDESONIDE 0.5 MG NEB NEB SCH ×2 (07:30→20:56)
[2016-10-13] MEDS: BUDESONIDE 0.25 MG NEB NEB SCH ×2 (07:31→20:56)
--- NOTE | 2016-10-13 07:58 | PCM.PULM ---
Chief Complaint: Patient is feeling better. Breathing is improving. Uses oxygen and BIPAP prn Current medication list reviewed:yes Notes reviewed:yes - Physical Examination Vital Signs and I&O: Last Vital Signs Temp 98.0 F 10/13/16 07:46 Pulse 85 10/13/16 07:46 Resp 18 10/13/16 07:46 BP 118/65 10/13/16 07:46 Pulse Ox 92 10/13/16 07:46 Oxygen Pulse Oxygen Saturation 92 O2 Device Nasal Cannula Oxygen Flow Rate 3 Fraction of Inspired Oxygen ( 30 FIO2) Intake & Output 10/10/16 10/11/16 10/12/16 10/13/16 23:59 23:59 23:59 23:59 Intake Total 2677 2181 1795 512 Output Total 750 3500 1700 Balance 1927 -1319 95 512 Patient's weight 104.19 kg 100.924 kg 100.924 kg 99.7 kg General: Alert, Oriented x3, Cooperative, No acute distress, Fatigue Respiratory: Diminished (at bases) Cardiovascular: Regular rate, Regular rate and rhythm, Normal S1, No Gallops, Rubs/Murmurs, Normal S2 GI: Normal bowel sounds, Soft, Non tender, No hepatospenomegaly, No masses, Obese Extremities/Musculoskeletal: Normal pulses Skin: Warm,Dry and Intact, No rashes, No significant lesion Neurological: Normal Steady Gait, Normal speech, Strength at 5/5 X4 ext, Cranial nerves 3-12 NL Psych/Mental Status: Appropriate Result Diagrams: 10/13/16 04:35 10/13/16 04:35 Labs (last 24 hours): Laboratory Results - last 24 hr 10/12/16 10/12/16 10/13/16 16:16 21:21 04:35 WBC 14.2 H RBC 4.47 Hgb 13.0 Hct 39.5 MCV 88 MCH 29.0 MCHC 32.9 L RDW 14.6 H Plt Count 309 MPV 7.8 Neut % (Auto) Cancelled Lymph % (Auto) Cancelled [place] % (Auto) Cancelled Eos % (Auto) Cancelled Baso % (Auto) Cancelled Absolute Neuts (auto) Cancelled Absolute Lymphs (auto) Cancelled Seg Neuts % (Manual) 84 H Band Neutrophils % 0 Lymphocytes % (Manual) 10 L Monocytes % (Manual) 6 Absolute Neutrophils 11.93 H Absolute Lymphocytes 1.42 Platelet Estimate Norm RBC Morphology Norm Puncture Site pH pCO2 pO2 HCO3 Total CO2 Base Excess FiO2 % Specimen Drawn By Sodium Potassium Chloride Carbon Dioxide Anion Gap BUN Creatinine Estimated GFR (MDRD) Glucose POC Capillary Glucose 279 H 266 H Calculated Osmolality Calcium Gekwa-7-Fbnzbttiitz Alpha-1-AT Phenotype 10/13/16 10/13/16 10/13/16 04:35 05:11 05:30 WBC RBC Hgb Hct MCV MCH MCHC RDW Plt Count MPV Neut % (Auto) Lymph % (Auto) [place] % (Auto) Eos % (Auto) Baso % (Auto) Absolute Neuts (auto) Absolute Lymphs (auto) Seg Neuts % (Manual) Band Neutrophils % Lymphocytes % (Manual) Monocytes % (Manual) Absolute Neutrophils Absolute Lymphocytes Platelet Estimate RBC Morphology Puncture Site Left brachial pH 7.480 H pCO2 70.0 H* pO2 71.0 L HCO3 52.1 H Total CO2 54.2 H Base Excess 23.9 H FiO2 % 3 Specimen Drawn By Rakma Sodium 131 L Potassium 3.8 Chloride 76 L Carbon Dioxide 40 H Anion Gap 19 H BUN 78 H Creatinine 1.70 H D Estimated GFR (MDRD) 30 L Glucose 162 H POC Capillary Glucose 159 H Calculated Osmolality 280 Calcium 9.1 Flhtu-1-Enqikcbfjpk Alpha-1-AT Phenotype Lab/DI/Studies Reviewed: EKG: NSR, No ST or ST wave changes noted Cxray: 1 view Chest x-ray was seen personally patient seems to have unchanged x-ray from previously with minimal bilateral effusions Medications: Nicotine (Nicoderm) 21 mg TOP Q24H [facility] Stop: 10/22/16 12:59 Last Admin: 10/10/16 14:04 Dose: 21 mg Enoxaparin Sodium (Lovenox) 50 mg SQ Q24H [facility] Stop: 10/22/16 17:59 Last Admin: 10/10/16 16:49 Dose: 50 mg Guaifenesin (Robitussin) 10 ml PO Q6H PRN PRN Reason: Cough - First Option Stop: 10/22/16 16:59 Insulin Detemir (Levemir) 15 units SQ QHS [facility] Stop: 10/23/16 20:59 Last Admin: 10/10/16 20:31 Dose: 15 units Insulin Human Regular (Humulin R) 0 units SQ ACHS [facility] PRN Reason: Protocol Stop: 10/24/16 16:59 Last Admin: 10/11/16 06:15 Dose: 12 units Acetaminophen (Tylenol Tablet) 650 mg PO Q6H PRN; Protocol PRN Reason: Mild Pain or Fever above 100.4 Stop: 10/22/16 16:59 Acetaminophen/Hydrocodone Bitart (Hydrocodone 5 Mg/Acetamin 325 Mg) 1.5 tab PO Q12H PRN PRN Reason: moderate to severe pain Stop: 10/23/16 15:34 Last Admin: 10/09/16 17:02 Dose: 1.5 tab Albuterol/Ipratropium (Duoneb) 3 ml NEB Q2H PRN PRN Reason: Wheezing Stop: 10/22/16 16:59 Alprazolam (Xanax) 2 mg PO TID PRN PRN Reason: Anxiety-1ST Stop: 10/23/16 09:38 Last Admin: 10/11/16 02:39 Dose: 2 mg Aspirin (Ecotrin) 81 mg PO DAILY [facility] Stop: 10/24/16 08:59 Last Admin: 10/10/16 08:02 Dose: 81 mg Azithromycin 500 mg/ Dextrose 250 mls @ 250 mls/hr IV Q24H [facility] Stop: 10/13/16 13:59 Last Admin: 10/10/16 16:24 Dose: 250 mls/hr Benzonatate (Tessalon) 200 mg PO TID PRN PRN Reason: Cough - Alternative Stop: 10/22/16 16:59 Benzonatate (Tessalon) 100 mg PO TID [facility] Stop: 10/23/16 20:59 Last Admin: 10/11/16 06:15 Dose: 100 mg Budesonide (Pulmicort) 0.5 mg NEB RTBID [facility] Stop: 10/23/16 19:59 Last Admin: 10/11/16 08:07 Dose: 0.5 mg Cholecalciferol (Vitamin D) 2,000 units PO DAILY@1200 [facility] Stop: 10/24/16 11:59 Last Admin: 10/10/16 14:03 Dose: Not Given Duloxetine HCl (Cymbalta) 60 mg PO DAILY [facility] Stop: 10/24/16 08:59 Last Admin: 10/10/16 08:02 Dose: 60 mg Enalaprilat (Vasotec) 1.25 mg IV Q6H PRN PRN Reason: SBP Above 170 Stop: 10/22/16 16:59 Lorazepam (Ativan) 1 mg IV Q6H PRN PRN Reason: Anxiety or Agitation-ALT Stop: 10/22/16 16:59 Last Admin: 10/09/16 08:37 Dose: 1 mg Losartan Potassium (Cozaar) 25 mg PO DAILY [facility] Stop: 10/24/16 08:59 Last Admin: 10/10/16 08:02 Dose: 25 mg Metoprolol Succinate (Toprol Xl) 50 mg PO DAILY [facility] Stop: 10/24/16 08:59 Last Admin: 10/10/16 08:03 Dose: 50 mg Montelukast Sodium (Singulair) 10 mg PO HS [facility] Stop: 10/23/16 16:59 Last Admin: 10/10/16 20:34 Dose: Not Given Roflumilast (Daliresp) 500 mcg PO DAILY [facility] Stop: 10/24/16 08:59 Last Admin: 10/10/16 08:02 Dose: 500 mcg Promethazine HCl (Phenergan) 12.5 mg IV Q6H PRN; Protocol PRN Reason: Nausea/Vomiting - Alternative Stop: 10/22/16 16:59 Theophylline (Ananda-Dur) 300 mg PO BID [facility] Stop: 10/23/16 16:59 Last Admin: 10/10/16 20:34 Dose: Not Given Triamterene/HCTZ (Maxzide 75/50) 1 tab PO DAILY [facility] Stop: 10/23/16 09:59 Last Admin: 10/10/16 08:03 Dose: 1 tab Trazodone HCl (Desyrel) 100 mg PO QHS [facility] Stop: 10/23/16 20:59 Last Admin: 10/10/16 20:33 Dose: Not Given Furosemide 100 mg/ Sodium (Chloride) 50 mls @ 5 mls/hr IV Q10H [facility]; 10 MG/HR PRN Reason: Protocol Stop: 10/25/16 16:59 Last Admin: 10/12/16 11:32 Dose: 5 mls/hr Linezolid (Zyvox 600 Mg/300 Ml Premix) 600 mg in 300 mls @ 150 mls/hr IV Q12H [facility] Stop: 10/15/16 16:59 Last Admin: 10/12/16 13:11 Dose: 150 mls/hr Triamterene/HCTZ (Maxzide 75/50) 1 tab PO DAILY [facility] Stop: 10/23/16 09:59 Last Admin: 10/12/16 08:12 Dose: 1 tab Methylprednisolone Sodium Succinate (Solu-Medrol) 40 mg IV Q8H [facility] Stop: 10/27/16 00:00 Last Admin: 10/12/16 22:51 Dose: 40 mg Magnesium Oxide (Mag-Ox) 400 mg PO TIDWM [facility] Stop: 10/26/16 11:59 Last Admin: 10/13/16 09:24 Dose: 400 mg - Assessment/Plan (1) Acute respiratory failure with hypoxia and hypercapnia Acute J96.01 - ACUTE RESPIRATORY FAILURE WITH HYPOXIA; J96.02 - ACUTE RESPIRATORY FAILURE WITH HYPERCAPNIA Comment/Plan: Patient breathing is improving. not much of wheezing. Would cut steroid down to 20 mg Q8h. Would continue BIPAP at night and prn, supplemental oxygen, IV lasix , patient was placed on linezolid and Zithromax i continue Duo nebulizer treatment, DVT/GI prophylaxis and other supportive care at this time. (2) Acute exacerbation of chronic obstructive airways disease Acute J44.1 - CHRONIC OBSTRUCTIVE PULMONARY DISEASE W (ACUTE) EXACERBATION Comment/Plan: Improving. Would cut steroid down. Continue current medication therapy and full supportive care (3) Bacterial pneumonia Acute J15.9 - UNSPECIFIED BACTERIAL PNEUMONIA Comment/Plan: Continue the current antibiotics (4) Hypoxia Acute R09.02 - HYPOXEMIA Comment/Plan: Improving. Continue BIPAP and supplemental oxygen PRN (5) Obstructive sleep apnea (adult) (pediatric) Acute G47.33 - OBSTRUCTIVE SLEEP APNEA (ADULT) (PEDIATRIC) Comment/Plan: Continue BiPAP while patient is sleeping and PRN
--- NOTE | 2016-10-13 08:06 | DIRPT ---
CLINICAL DATA: Respiratory failure EXAM: PORTABLE CHEST 1 VIEW COMPARISON: 10/11/2016; 10/08/2016; 06/01/2016; 03/31/2015; chest CT -03/31/2020 FINDINGS: Examination is again degraded due to patient body habitus and portable technique. Grossly unchanged enlarged cardiac silhouette with partial obscuration of the left heart border secondary to a chronic left basilar heterogeneous/consolidative opacity favored to represent any combination of a prominent epicardial fat pad and left basilar atelectasis/scar. No new focal airspace opacities. No definite pleural effusion or pneumothorax. No evidence of edema. No acute osseus abnormalities. IMPRESSION: 1. No definite acute cardiopulmonary disease on this body habitus degraded AP portable examination. 2. Chronic left basilar opacities favored to represent a combination of atelectasis/scar and a prominent epicardial fat pad. Electronically Signed By: José Miguel Boswell M.D. On: 10/13/2016 08:03
[2016-10-13] MEDS: MAGNESIUM OXIDE 400 MG TAB PO SCH ×3 (09:24→17:47)
[2016-10-13] MEDS: TRIAMTERENE PO SCH (09:25)
[2016-10-13] MEDS: LOSARTAN POTASSIUM 25 MG TAB PO SCH (09:25)
[2016-10-13] MEDS: HCTZ PO SCH (09:25)
[2016-10-13] MEDS: THEOPHYLLINE 300 MG PO SCH ×2 (09:25→20:37)
[2016-10-13] MEDS: METOPROLOL (TOPROL-XL) 50 MG TAB PO SCH (09:25)
[2016-10-13] MEDS: ROFLUMILAST 500 MCG TAB PO SCH (09:25)
[2016-10-13] MEDS: FLUTICASONE PROPIONATE 16 GM BOT NAS SCH ×2 (09:25→20:37)
[2016-10-13] MEDS: METHYLPREDNISOLONE 40 MG/1 ML VIAL IV SCH ×3 (11:08→22:51)
[2016-10-13] MEDS: CHOLECALCIFEROL 1000 UNITS TAB PO SCH (12:09)
[2016-10-13] MEDS: Linezolid 600 mg/300 ml Premix 600 MG/300 ML RTU IV SCH ×2 (12:10→22:51)
[2016-10-13] MEDS: NICOTINE 21 MG PATCH TOP SCH (12:11)
[2016-10-13] MEDS: ONDANSETRON HCL 4 MG/2 ML VIAL IV PRN (13:55)
[2016-10-13] MEDS ORDERED: AZITHROMYCIN 500 MG in D5W 250 ML IV SCH (16:00)
--- NOTE | 2016-10-13 16:14 | GENMEDPROG ---
Subjective Note: Patient in chair responsive follows commands. Still short of breath coughing producing fair amount thick sputum no hemoptysis. Dyspneic with minimal physical exertion. Compliant with nocturnal BiPAP Notes Reviewed: Yes Events from last night noted and discussed with Clinical Staff Current Medication List: Reviewed Currently: Reports: Wheezing, HUTCHINSON, SOB, Sputum, Tobacco Use/Hx (Quit 6 years ago ) DVT Prophylaxis: Yes - Physical Examination Vital Signs and I&O: Last Vital Signs Temp 97.6 F 10/13/16 11:23 Pulse 87 10/13/16 11:23 Resp 18 10/13/16 11:23 BP 135/70 10/13/16 11:23 Pulse Ox 92 10/13/16 11:23 Oxygen Pulse Oxygen Saturation 92 O2 Device Nasal Cannula Oxygen Flow Rate 3 Fraction of Inspired Oxygen ( 30 FIO2) Intake & Output 10/10/16 10/11/16 10/12/16 10/13/16 23:59 23:59 23:59 23:59 Intake Total 2677 2181 1795 992 Output Total 750 3500 1700 Balance 1927 -1319 95 992 Patient's weight 104.19 kg 100.924 kg 100.924 kg 99.7 kg General: Alert, Oriented x3, Cooperative, Severe distress HEENT: Normal (Normocephalic, atraumatic;EOMI.Sclera white, Nares patent, without discharge or bleeding. No oropharyngeal lesions or erythema. Mucous membranes are dry.), PERRLA, EOMI Neck: Non-tender, Full range of motion, Normal Trachea alignment, Normal inspection (No cervical lymphadenopathy. No supraclavicular lymphadenopathy.), No Masses palpable, Supple Lymphatics: Normal. negative: Cervical Adenopathy, Supraclavicular Adenopathy Respiratory: Accessory Muscle Use, Diminished, Rhonchi, Wheezes (Significantly decreased today) Cardiovascular: Regular rate and rhythm (No bradycardia or tachycardia), Normal S1, No Gallops,Rubs/Murmurs, Normal S2, Good Pedal Pulses (DP pulses 2+ bilaterally) GI: Normal bowel sounds (normal active sounds), Soft (non-distended), Non tender , No hepatospenomegaly, No masses Extremities/Musculoskeletal: Normal pulses (DP pulses 2+ bilaterally) Skin: Warm,Dry and Intact, No rashes, No significant lesion Neurological: Strength at 5/5 X4 ext (Motor 5/5 throughout.), Normal tone, Cranial nerves 3-12 NL ( 2-12 grossly intact.) Psych/Mental Status: Anxious Lab/DI/Studies Reviewed: Allergies levofloxacin [From Levaquin] Allergy (Verified 10/08/16 09:10) Edema-Oral/Lip morphine Allergy (Verified 10/08/16 09:10) See Comments "shaking all over" per family 10/13/16 04:35 10/13/16 04:35 Last Vital Signs Temp 97.6 F 10/13/16 11:23 Pulse 87 10/13/16 11:23 Resp 18 10/13/16 11:23 BP 135/70 10/13/16 11:23 Pulse Ox 92 10/13/16 11:23 Abnormal Lab Results 10/12/16 10/12/16 10/13/16 16:16 21:21 04:35 WBC 14.2 H MCHC 32.9 L RDW 14.6 H Seg Neuts % (Manual) 84 H Lymphocytes % (Manual) 10 L Absolute Neutrophils 11.93 H pH pCO2 pO2 HCO3 Total CO2 Base Excess Sodium Chloride Carbon Dioxide Anion Gap BUN Creatinine Estimated GFR (MDRD) Glucose POC Capillary Glucose 279 H 266 H 10/13/16 10/13/16 10/13/16 04:35 05:11 05:30 WBC MCHC RDW Seg Neuts % (Manual) Lymphocytes % (Manual) Absolute Neutrophils pH 7.480 H pCO2 70.0 H* pO2 71.0 L HCO3 52.1 H Total CO2 54.2 H Base Excess 23.9 H Sodium 131 L Chloride 76 L Carbon Dioxide 40 H Anion Gap 19 H BUN 78 H Creatinine 1.70 H D Estimated GFR (MDRD) 30 L Glucose 162 H POC Capillary Glucose 159 H 10/13/16 11:26 WBC MCHC RDW Seg Neuts % (Manual) Lymphocytes % (Manual) Absolute Neutrophils pH pCO2 pO2 HCO3 Total CO2 Base Excess Sodium Chloride Carbon Dioxide Anion Gap BUN Creatinine Estimated GFR (MDRD) Glucose POC Capillary Glucose 125 H - Assessment (1) Acute respiratory failure with hypoxia and hypercapnia Acute J96.01 - ACUTE RESPIRATORY FAILURE WITH HYPOXIA; J96.02 - ACUTE RESPIRATORY FAILURE WITH HYPERCAPNIA Comment/Plan: Continue O2 nebs and pulmonary toilet. Continue BiPAP. (2) Respiratory failure, [id number] Acute J96.20 - ACUTE AND CHR RESP FAILURE, UNSP W HYPOXIA OR HYPERCAPNIA Qualifiers: Respiratory failure complication: hypoxia and hypercapnia Qualified Code(s) : J96.21 - Acute and chronic respiratory failure with hypoxia; J96.22 - Acute and chronic respiratory failure with hypercapnia Comment/Plan: Continues to have hypercapnic respiratory failure. Continue BiPAP 3 hours on 3 hours off for now. (3) Poorly controlled diabetes mellitus Chronic E11.65 - TYPE 2 DIABETES MELLITUS WITH HYPERGLYCEMIA Comment/Plan: Continue ADA diet Accu-Cheks sliding scale and home regimen (4) Bacterial pneumonia Acute J15.9 - UNSPECIFIED BACTERIAL PNEUMONIA Comment/Plan: Continue IV antibiotics (5) GERD (gastroesophageal reflux disease) Chronic K21.9 - GASTRO-ESOPHAGEAL REFLUX DISEASE WITHOUT ESOPHAGITIS Qualifiers: Esophagitis presence: without esophagitis Qualified Code(s): K21.9 - Gastro -esophageal reflux disease without esophagitis Comment/Plan: Continue ppi (6) Hypertension Chronic I10 - ESSENTIAL (PRIMARY) HYPERTENSION Qualifiers: Hypertension type: essential hypertension Qualified Code(s): I10 - Essential (primary) hypertension Comment/Plan: Stable on meds. Keep SBP less than 140. Case Care Discussed with: Patient, Consultants, Family, Nursing Staff, Receipt And Report Clerk Education/Counseling Given To: Patient Education/Counseling Given Regarding: Diagnosis, Treatment, Prognosis, Follow Up Total Time: 45 min . Code: 98960 (12+)
[2016-10-13] MEDS: ENOXAPARIN 60 MG/0.6 ML PFS SQ SCH (17:47)
[2016-10-13] MEDS: Docusate Sodium 100 MG CAP PO SCH (20:36)
[2016-10-13] MEDS: GUAIFENESIN 600 MG LA TAB PO SCH (20:36)
[2016-10-13] MEDS: DOCUSATE-SENNA CONCENTRATE TAB PO SCH (20:37)
[2016-10-13] MEDS: MONTELUKAST SODIUM 10 MG TAB PO SCH (20:37)
[2016-10-13] MEDS: INSULIN DETEMIR 100 UNITS/ML PEN SQ SCH (20:38)
[2016-10-13] MEDS: ALPRAZOLAM 0.5 MG TAB PO PRN (22:51)
[2016-10-14] MEDS: Albuterol/Ipratropium Neb 3 ML NEB NEB SCH ×2 (01:58→08:42)
[2016-10-14] MEDS: ONDANSETRON HCL 4 MG/2 ML VIAL IV PRN ×2 (02:50→09:50)
[2016-10-14 04:37] LABS: ALLEN'S TEST PASS; BEb 26.9 (+/- 2); TCO2 57.8 MMOL/L (23-27)
[2016-10-14 04:43] LABS: ABG Draw Site Left Radial
[2016-10-14 04:45] LABS: BI-PAP 20/8 cm H2O
[2016-10-14 05:48] LABS: MPV 8.7 fL (7.4-10.4); SODIUM LEVEL 125 mEq/L (137-146)
[2016-10-14 05:50] LABS: BLOOD UREA NITROGEN 89 MG/DL (7-17); CALCIUM 9.1 MG/DL (8.4-10.2); CALCULATED OSMOLALITY 279 MOs/Kg (270-290); CHLORIDE 73 mEq/L (98-107); GLUCOSE 278 MG/DL (70-99)
[2016-10-14] MEDS: GLIPIZIDE XL 2.5 MG TAB PO SCH (06:07)
[2016-10-14] MEDS: BENZONATATE 100 MG PERLES PO SCH (06:07)
[2016-10-14] MEDS: SODIUM CHLORIDE 0.9% 3 ML FLUSH FLUSH SCH (06:07)
[2016-10-14] MEDS: REGULAR INSULIN 100 UNITS/ML - 3 ML VIAL SQ SCH ×2 (06:07→12:11)
[2016-10-14 07:11] LABS: SEG NEUTROPHIL 82 % (45-76)
[2016-10-14] MEDS ORDERED: FUROSEMIDE 40 MG TAB PO SCH (08:00)
[2016-10-14] MEDS: BUDESONIDE 0.5 MG NEB NEB SCH (08:49)
[2016-10-14] MEDS: BUDESONIDE 0.25 MG NEB NEB SCH (08:50)
[2016-10-14] MEDS: MAGNESIUM OXIDE 400 MG TAB PO SCH (09:28)
[2016-10-14] MEDS ORDERED: ONDANSETRON HCL 4 MG/2 ML VIAL ONE (09:47)
[2016-10-14] MEDS: GUAIFENESIN 600 MG LA TAB PO SCH (10:45)
[2016-10-14] MEDS: LOSARTAN POTASSIUM 25 MG TAB PO SCH (10:46)
[2016-10-14] MEDS: METHYLPREDNISOLONE 40 MG/1 ML VIAL IV SCH (10:46)
[2016-10-14] MEDS: METOPROLOL (TOPROL-XL) 50 MG TAB PO SCH (10:46)
[2016-10-14] MEDS: ALPRAZOLAM 0.5 MG TAB PO PRN (10:47)
[2016-10-14] MEDS: FLUTICASONE PROPIONATE 16 GM BOT NAS SCH (10:48)
[2016-10-14] MEDS: ROFLUMILAST 500 MCG TAB PO SCH (10:48)
[2016-10-14] MEDS: THEOPHYLLINE 300 MG PO SCH (10:59)
--- NOTE | 2016-10-14 10:59 | PCM.PULM ---
Chief Complaint: Breathing is reactively stable. She is on oxygen and uses BIPAP at night. She is going to be discharged home soon. Current medication list reviewed:yes Notes reviewed:yes DVT prophylaxis:yes - Physical Examination Vital Signs and I&O: Last Vital Signs Temp 97.4 F L 10/14/16 07:00 Pulse 79 10/14/16 07:00 Resp 18 10/14/16 07:00 BP 136/69 10/14/16 07:00 Pulse Ox 94 10/14/16 08:41 Oxygen Pulse Oxygen Saturation 94 O2 Device Nasal Cannula Oxygen Flow Rate 3 Fraction of Inspired Oxygen ( 30 FIO2) Intake & Output 10/11/16 10/12/16 10/13/16 10/14/16 23:59 23:59 23:59 23:59 Intake Total 2181 1795 2114 614 Output Total 3500 1700 600 Balance -1319 95 2114 14 Patient's weight 100.924 kg 100.924 kg 99.7 kg 100.108 kg General: Alert, Oriented x3, No acute distress Respiratory: Normal - CTA, Diminished Cardiovascular: Regular rate, Regular rate and rhythm, Normal S1, No Gallops, Rubs/Murmurs, Normal S2 GI: Normal bowel sounds, Soft, Non tender, No hepatospenomegaly, No masses Extremities/Musculoskeletal: Normal pulses Skin: Warm,Dry and Intact, No rashes, No breakdown, No significant lesion Neurological: Normal Steady Gait, Normal speech, Strength at 5/5 X4 ext, Normal tone, Cranial nerves 3-12 NL Psych/Mental Status: Normal Affect Result Diagrams: 10/14/16 05:10 10/14/16 05:10 Labs (last 24 hours): Laboratory Results - last 24 hr 10/14/16 10/14/16 10/14/16 04:30 05:10 05:10 WBC 12.6 H RBC 4.44 Hgb 13.0 Hct 39.0 MCV 88 MCH 29.3 MCHC 33.3 RDW 14.9 H Plt Count 357 MPV 8.7 Neut % (Auto) Cancelled Lymph % (Auto) Cancelled [place] % (Auto) Cancelled Eos % (Auto) Cancelled Baso % (Auto) Cancelled Absolute Neuts (auto) Cancelled Absolute Lymphs (auto) Cancelled Seg Neuts % (Manual) 82 H Band Neutrophils % 1 Lymphocytes % (Manual) 14 L Monocytes % (Manual) 3 Absolute Neutrophils 10.46 H Absolute Lymphocytes 1.76 Platelet Estimate Norm RBC Morphology Norm Puncture Site Left radial pH 7.490 H pCO2 73.0 H* pO2 55.0 L HCO3 55.6 H Total CO2 57.8 H Base Excess 26.9 H FiO2 % 30% Mode BiPAP 20/05 [facility] Sodium 125 L Potassium 4.7 Chloride 73 L Carbon Dioxide 44 H Anion Gap 13 BUN 89 H Creatinine 1.40 H Estimated GFR (MDRD) 38 L Glucose 278 H POC Capillary Glucose Calculated Osmolality 279 Calcium 9.1 Magnesium 3.20 H 10/14/16 05:44 WBC RBC Hgb Hct MCV MCH MCHC RDW Plt Count MPV Neut % (Auto) Lymph % (Auto) [place] % (Auto) Eos % (Auto) Baso % (Auto) Absolute Neuts (auto) Absolute Lymphs (auto) Seg Neuts % (Manual) Band Neutrophils % Lymphocytes % (Manual) Monocytes % (Manual) Absolute Neutrophils Absolute Lymphocytes Platelet Estimate RBC Morphology Puncture Site pH pCO2 pO2 HCO3 Total CO2 Base Excess FiO2 % Mode BiPAP Specimen Drawn By Sodium Potassium Chloride Carbon Dioxide Anion Gap BUN Creatinine Estimated GFR (MDRD) Glucose POC Capillary Glucose 281 H Calculated Osmolality Calcium Magnesium Lab/DI/Studies Reviewed: EKG: NSR, NO ST or ST wave changes noted Medications Nicotine (Nicoderm) 21 mg TOP Q24H [facility] Stop: 10/22/16 12:59 Last Admin: 10/10/16 14:04 Dose: 21 mg Enoxaparin Sodium (Lovenox) 50 mg SQ Q24H [facility] Stop: 10/22/16 17:59 Last Admin: 10/10/16 16:49 Dose: 50 mg Guaifenesin (Robitussin) 10 ml PO Q6H PRN PRN Reason: Cough - First Option Stop: 10/22/16 16:59 Insulin Detemir (Levemir) 15 units SQ QHS [facility] Stop: 10/23/16 20:59 Last Admin: 10/10/16 20:31 Dose: 15 units Insulin Human Regular (Humulin R) 0 units SQ ACHS [facility] PRN Reason: Protocol Stop: 10/24/16 16:59 Last Admin: 10/11/16 06:15 Dose: 12 units Alprazolam (Xanax) 2 mg PO TID PRN PRN Reason: Anxiety-1ST Stop: 10/23/16 09:38 Last Admin: 10/11/16 21:01 Dose: 2 mg Methylprednisolone Sodium Succinate (Solu-Medrol) 40 mg IV Q8H [facility] Stop: 10/27/16 00:00 Last Admin: 10/12/16 22:51 Dose: 40 mg Magnesium Oxide (Mag-Ox) 400 mg PO TIDWM [facility] Stop: 10/26/16 11:59 Last Admin: 10/13/16 09:24 Dose: 400 mg Acetaminophen/Hydrocodone Bitart (Hydrocodone 5 Mg/Acetamin 325 Mg) 1.5 tab PO Q12H PRN PRN Reason: moderate to severe pain Stop: 10/23/16 15:34 Last Admin: 10/09/16 17:02 Dose: 1.5 tab Albuterol/Ipratropium (Duoneb) 3 ml NEB Q2H PRN PRN Reason: Wheezing Stop: 10/22/16 16:59 Alprazolam (Xanax) 2 mg PO TID PRN PRN Reason: Anxiety-1ST Stop: 10/23/16 09:38 Last Admin: 10/11/16 02:39 Dose: 2 mg Aspirin (Ecotrin) 81 mg PO DAILY [facility] Stop: 10/24/16 08:59 Last Admin: 10/10/16 08:02 Dose: 81 mg Azithromycin 500 mg/ Dextrose 250 mls @ 250 mls/hr IV Q24H [facility] Stop: 10/13/16 13:59 Last Admin: 10/10/16 16:24 Dose: 250 mls/hr Benzonatate (Tessalon) 200 mg PO TID PRN PRN Reason: Cough - Alternative Stop: 10/22/16 16:59 Benzonatate (Tessalon) 100 mg PO TID [facility] Stop: 10/23/16 20:59 Last Admin: 10/11/16 06:15 Dose: 100 mg Budesonide (Pulmicort) 0.5 mg NEB RTBID [facility] Stop: 10/23/16 19:59 Last Admin: 10/11/16 08:07 Dose: 0.5 mg Cholecalciferol (Vitamin D) 2,000 units PO DAILY@1200 [facility] Stop: 10/24/16 11:59 Last Admin: 10/10/16 14:03 Dose: Not Given Duloxetine HCl (Cymbalta) 60 mg PO DAILY [facility] Stop: 10/24/16 08:59 Last Admin: 10/10/16 08:02 Dose: 60 mg Enalaprilat (Vasotec) 1.25 mg IV Q6H PRN PRN Reason: SBP Above 170 Stop: 10/22/16 16:59 Lorazepam (Ativan) 1 mg IV Q6H PRN PRN Reason: Anxiety or Agitation-ALT Stop: 10/22/16 16:59 Last Admin: 10/09/16 08:37 Dose: 1 mg Roflumilast (Daliresp) 500 mcg PO DAILY [facility] Stop: 10/24/16 08:59 Last Admin: 10/10/16 08:02 Dose: 500 mcg Promethazine HCl (Phenergan) 12.5 mg IV Q6H PRN; Protocol PRN Reason: Nausea/Vomiting - Alternative Stop: 10/22/16 16:59 Theophylline (Ananda-Dur) 300 mg PO BID [facility] Stop: 10/23/16 16:59 Last Admin: 10/10/16 20:34 Dose: Not Given Triamterene/HCTZ (Maxzide 75/50) 1 tab PO DAILY [facility] Stop: 10/23/16 09:59 Last Admin: 10/10/16 08:03 Dose: 1 tab Trazodone HCl (Desyrel) 100 mg PO QHS [facility] Stop: 10/23/16 20:59 Last Admin: 10/10/16 20:33 Dose: Not Given Furosemide (Lasix) 40 mg PO 0800,1600 [facility] Stop: 10/27/16 16:59 Last Admin: 10/14/16 10:46 Dose: 40 mg Linezolid (Zyvox 600 Mg/300 Ml Premix) 600 mg in 300 mls @ 150 mls/hr IV Q12H [facility] Stop: 10/15/16 16:59 Last Admin: 10/14/16 11:02 Dose: 150 mls/hr - Assessment/Plan (1) Acute respiratory failure with hypoxia and hypercapnia Resolved J96.01 - ACUTE RESPIRATORY FAILURE WITH HYPOXIA; J96.02 - ACUTE RESPIRATORY FAILURE WITH HYPERCAPNIA Comment/Plan: Patient breathing improved. Continue current therapy and Patient will be discharged home soon and will follow up with patient in out patient clinic with in one week. (2) Acute exacerbation of chronic obstructive airways disease Acute J44.1 - CHRONIC OBSTRUCTIVE PULMONARY DISEASE W (ACUTE) EXACERBATION Comment/Plan: Improved. Would change IV steroid to PO prednisone and would finish the course of Po antibiotic after discharged and continue supplemental oxygen and BIPAP at home. She may need higher pressure on BIPAP which will arrange it in out patient. Continue full supportive care (3) Bacterial pneumonia Acute J15.9 - UNSPECIFIED BACTERIAL PNEUMONIA Comment/Plan: Continue the current antibiotics (4) Hypoxia Acute R09.02 - HYPOXEMIA Comment/Plan: Continue oxygen and BIPAP PRN (5) Obstructive sleep apnea (adult) (pediatric) Acute G47.33 - OBSTRUCTIVE SLEEP APNEA (ADULT) (PEDIATRIC) Comment/Plan: Continue BiPAP while patient is sleeping and PRN
[2016-10-14] MEDS: Linezolid 600 mg/300 ml Premix 600 MG/300 ML RTU IV SCH (11:02)
[2016-10-14 11:05] VITALS: BP 115/56; PULSE 81; TEMP 97.8
--- NOTE | 2016-10-14 11:06 | PCM.DCS92 ---
- Final/Secondary Discharge Diagnosis (1) Acute respiratory failure with hypoxia and hypercapnia Resolved J96.01 - ACUTE RESPIRATORY FAILURE WITH HYPOXIA; J96.02 - ACUTE RESPIRATORY FAILURE WITH HYPERCAPNIA Present on Admission: Yes Comment: Continue O2 nebs and pulmonary toilet. Continue BiPAP. I have stress importance of using BiPAP as indicated to the patient and family. (2) Respiratory failure, [id number] Acute J96.20 - ACUTE AND CHR RESP FAILURE, UNSP W HYPOXIA OR HYPERCAPNIA Present on Admission: Yes hypoxia and hypercapnia J96.21 - Acute and chronic respiratory failure with hypoxia; J96.22 - Acute and chronic respiratory failure with hypercapnia Comment: Continues to have hypercapnic respiratory failure. Continue BiPAP 3 hours on 3 hours off for now. (3) Poorly controlled diabetes mellitus Chronic E11.65 - TYPE 2 DIABETES MELLITUS WITH HYPERGLYCEMIA Present on Admission: Yes Comment: Continue ADA diet Accu-Cheks sliding scale and home regimen (4) Bacterial pneumonia Acute J15.9 - UNSPECIFIED BACTERIAL PNEUMONIA Present on Admission: Yes Comment: Patient has finished 7 days of IV antibiotics. (5) GERD (gastroesophageal reflux disease) Chronic K21.9 - GASTRO-ESOPHAGEAL REFLUX DISEASE WITHOUT ESOPHAGITIS without esophagitis K21.9 - Gastro-esophageal reflux disease without esophagitis Comment: Continue ppi (6) Hypertension Chronic I10 - ESSENTIAL (PRIMARY) HYPERTENSION Present on Admission: Yes essential hypertension I10 - Essential (primary) hypertension Comment: Stable on meds. Keep SBP less than 140. Discharge Disposition: Home Discharge Condition: Improved Cognitive Discharge Status: Unimpaired Fuctional Discharge Status: Wheelchair Assistance New Prescriptions: Albuterol/Ipratropium Neb [Duoneb] 3 ml NEB Q6H #120 nebu Furosemide [Lasix] 40 mg PO BID #120 tab Potassium Chloride 20 meq PO DAILY #90 tablet.er Prednisone 10 mg PO DAILY #30 tab.ds.pk Ondansetron HCl [Zofran] 4 mg PO Q6H PRN #30 tab PRN Reason: Nausea/Vomiting O2 Device: Nasal Cannula Oxygen to be used after Discharge: Continuous Diet at Discharge: Heart Healthy, Low Salt, 2200 Calorie, High Fiber Activity: No Restrictions, As Tolerated, Limited Call Office For: Fever over 101 F Discontinue use of:: Alcohol, All Illegal Substances, All Types of Tobacco - DC Summary Notes Hospital Course Note:: Discharge summary on patient named PABLO SALMON admitted to [facility] on 10/08/16 by Rashida Johnston MD. Date of discharge is [] . Patient was initially brought to emergency room on October 08 for evaluation of progressively worsening difficulties breathing cough and phlegm production. Patient reported that her symptoms have worsened over few days prior to this presentation. Patient developed chest tightness wheezes and cough productive of thick yellowish phlegm. Upon arrival in ED patient was found to be in severe respiratory distress hypoxic tachypneic and tachycardic. Please refer to the admission for further details. She was placed on BiPAP and admitted to ICU. ABG showed CO2 retention. Chest x-ray showed chronic scarring within the left lung and small left pleural effusion. Treatment broad-spectrum antibiotics was instituted, during hospital stay patient has received IV Zyvox and IV Zithromax. She was seen consultation by her personal marketing strategist Dr. Pendleton and pulmonary regimen was optimized. Due to significant bronchospasm patient required IV steroids and she was gradually weaned off IV Solu-Medrol. During initial part of hospitalization patient was BiPAP dependent and she was gradually weaned off this device. Long discussion was held with patient on multiple occasions but importance of using BiPAP every night all night and as needed throughout the day. Overall her pulmonary status has slowly but progressively improved and stabilized. Outpatient regimen for chronic medical conditions was continued and during hospital stay patient has remained hemodynamically stable. She required additional sliding scale insulin coverage for steroid induced hyperglycemia. Repeated x-ray of the chest showed bilateral bibasilar atelectasis but no other acute cardio pulmonary disease. It was felt that by October 14 patient has reached maximum benefit of inpatient therapy and in clinically improved and stable condition ,after being cleared for discharge by marketing strategist ,she is being discharged home to the care of the family her PCP. Total Time: 45 min . Code: 69812 (>30min.) - Physical Exam Vital Signs: Last Vital Signs Temp 97.4 F L 10/14/16 07:00 Pulse 79 10/14/16 07:00 Resp 18 10/14/16 07:00 BP 136/69 10/14/16 07:00 Pulse Ox 94 10/14/16 08:41 Oxygen Pulse Oxygen Saturation 94 O2 Device Nasal Cannula Oxygen Flow Rate 3 Fraction of Inspired Oxygen ( 30 FIO2) Constitutional: No apparent distress, Alert, Other (Obese WF, ob bipap, opens eyes and answers questions in 1-2 word groups.) Oriented to: Time, Person, Place - HEENT Head: Normal Eye: Normal. negative: Conjunctival Injection, Scleral Icterus Oropharynx: Normal, Other (unable to see due to bipap) Tympanic Membrane: Normal ENT EAC: Normal, Other (unable to see due to bipap) TMJ: Normal Nose: No Symptoms Reported, Other (unable to see due to bipap) - Respiratory/Cardiovascular Respiratory: Diminished, Rhonchi Cardiovascular: Normal, Systolic murmur - GI Auscultation: Normal Palpation: Normal, Other (limited by body habitus and pt is sitting upright due to bipap) Tenderness: Non tender Rectal Exam: Deferred Stool: Brown - Musculoskeletal Back: Normal, Other (nontender when back is palpated but unable to visualize to due respiratory issues.) Extremities: Edema (1+ bilateral pitting), Pedal Pulse (trace). negative: Calf Tenderness - Integumentary Skin: Normal, Warm, Dry Lymphatics: Normal. negative: Cervical Adenopathy, Supraclavicular Adenopathy - Neurologic Memory Impaired: Normal Motor Function: Abnormal Cranial Nerve: Normal Cerebellar: Normal, Unable to Test Mood Description: Anxious Thought: Coherent, Other (unable to evaluate) Perception: Normal, Other (unable to evaluate) - Other Exam Other Exam Findings: Allergies levofloxacin [From Levaquin] Allergy (Verified 10/08/16 09:10) Edema-Oral/Lip morphine Allergy (Verified 10/08/16 09:10) See Comments "shaking all over" per family Discharge Home Medication List Budesonide/Formoterol Fumarate [Symbicort 160-4.5 Mcg Inhaler] 2 puff INH BID # 1 02/19/16 [Rx Confirmed 10/08/16] Albuterol/Ipratropium Neb [Duoneb] 3 ml NEB TID PRN 10/08/16 [History Confirmed 10/08/16] Alprazolam 1 mg PO TID 10/08/16 [History Confirmed 10/09/16] Fluticasone Propionate [Flonase Nasal [place]] 1 spray [place]O BID 10/08/16 [History Confirmed 10/08/16] Montelukast Sodium [Singulair] 10 mg PO QHS 10/08/16 [History Confirmed 10/09/16 ] Theophylline [Ananda-Dur] 300 mg PO BID 10/08/16 [History Confirmed 10/09/16] Trazodone HCl 100 mg PO QHS 10/08/16 [History Confirmed 10/08/16] Albuterol Sulfate [Proair Hfa] 2 puff INH QID PRN 10/09/16 [History Confirmed ] Aspirin (Enteric Coated) [Ecotrin] 81 mg PO DAILY 10/09/16 [History Confirmed ] Benzonatate [Tessalon [place]] 100 mg PO TID 10/09/16 [History Confirmed 10/09/16] Budesonide [Pulmicort] 0.25 mg NEB BID 10/09/16 [History Confirmed 10/09/16] Cholecalciferol (Vitamin D3) [Vitamin D3] 2,000 unit PO DAILY 10/09/16 [History Confirmed 10/09/16] Docusate Sodium [Colace] 100 mg PO QHS 10/09/16 [History Confirmed 10/09/16] Duloxetine [Cymbalta] 60 mg PO DAILY 10/09/16 [History Confirmed 10/09/16] Hydrocodone Bit/Acetaminophen [[place] 7.5-325 Tablet] 1 tab PO Q12H PRN 10/09/16 [History Confirmed 10/09/16] Insulin Detemir [Levemir Flextouch] 15 unit SQ QHS 10/09/16 [History Confirmed 10/09/16] Losartan Potassium 25 mg PO DAILY 10/09/16 [History Confirmed 10/09/16] Magnesium Oxide [Mag-Ox] 400 mg PO DAILY 10/09/16 [History Confirmed 10/09/16] Metformin HCl [Metformin HCl ER] 1,000 mg PO BID 10/09/16 [History Confirmed 06/17] Metoprolol Succinate [Toprol Xl] 50 mg PO DAILY 10/09/16 [History Confirmed 06/17] Prednisone [Deltasone] 20 mg PO DIR 10/09/16 [History Confirmed 10/09/16] Roflumilast [Daliresp] 500 mcg PO DAILY 10/09/16 [History Confirmed 10/09/16] See Comments 0 mg PO .SEE COMMENTS 10/09/16 [History Confirmed 10/09/16] Sennosides/Docusate Sodium [Senna-S Tablet] 1 tab PO QHS 10/09/16 [History Confirmed 10/09/16] Albuterol/Ipratropium Neb [Duoneb] 3 ml NEB Q6H #120 nebu 10/14/16 [Rx] Furosemide [Lasix] 40 mg PO BID #120 tab 10/14/16 [Rx] Ondansetron HCl [Zofran] 4 mg PO Q6H PRN #30 tab 10/14/16 [Rx] Potassium Chloride 20 meq PO DAILY #90 tablet.er 10/14/16 [Rx] Prednisone 10 mg PO DAILY #30 tab.ds.pk 10/14/16 [Rx] New Discharge Medications (Rx) Albuterol/Ipratropium Neb [Duoneb] 3 ml NEB Q6H #120 nebu 10/14/16 [Rx] Furosemide [Lasix] 40 mg PO BID #120 tab 10/14/16 [Rx] Ondansetron HCl [Zofran] 4 mg PO Q6H PRN #30 tab 10/14/16 [Rx] Potassium Chloride 20 meq PO DAILY #90 tablet.er 10/14/16 [Rx] Prednisone 10 mg PO DAILY #30 tab.ds.pk 10/14/16 [Rx] Last Vital Signs Temp 97.8 F 10/14/16 11:00 Pulse 81 10/14/16 11:00 Resp 18 10/14/16 11:00 BP 115/56 L 10/14/16 11:00 Pulse Ox 92 10/14/16 11:00 10/14/16 05:10 10/14/16 05:10 Abnormal Lab Results 10/13/16 10/13/16 10/13/16 11:26 17:20 20:37 WBC RDW Seg Neuts % (Manual) Lymphocytes % (Manual) Absolute Neutrophils pH pCO2 pO2 HCO3 Total CO2 Base Excess Sodium Chloride Carbon Dioxide BUN Creatinine Estimated GFR (MDRD) Glucose POC Capillary Glucose 125 H 142 H 186 H Magnesium 10/14/16 10/14/16 10/14/16 04:30 05:10 05:10 WBC 12.6 H RDW 14.9 H Seg Neuts % (Manual) 82 H Lymphocytes % (Manual) 14 L Absolute Neutrophils 10.46 H pH 7.490 H pCO2 73.0 H* pO2 55.0 L HCO3 55.6 H Total CO2 57.8 H Base Excess 26.9 H Sodium 125 L Chloride 73 L Carbon Dioxide 44 H BUN 89 H Creatinine 1.40 H Estimated GFR (MDRD) 38 L Glucose 278 H POC Capillary Glucose Magnesium 3.20 H 10/14/16 05:44 WBC RDW Seg Neuts % (Manual) Lymphocytes % (Manual) Absolute Neutrophils pH pCO2 pO2 HCO3 Total CO2 Base Excess Sodium Chloride Carbon Dioxide BUN Creatinine Estimated GFR (MDRD) Glucose POC Capillary Glucose 281 H Magnesium Patient Name: PABLO SALMON LOC: U : 1955 AGE: 61 Order Date:10/12/16 Date of Service: Report # [id number] Ord Physician: Napoleon Pendleton MD Exam # [id number] Emergency Physician: Anatoliy Damico DO Exam(s): [id number] RAD/DG CHEST PORTABLE CLINICAL DATA: Respiratory failure EXAM: PORTABLE CHEST 1 VIEW COMPARISON: 10/11/2016; 10/08/2016; 06/01/2016; 03/31/2015; chest CT -03/31/2020 FINDINGS: Examination is again degraded due to patient body habitus and portable technique. Grossly unchanged enlarged cardiac silhouette with partial obscuration of the left heart border secondary to a chronic left basilar heterogeneous/consolidative opacity favored to represent any combination of a prominent epicardial fat pad and left basilar atelectasis/scar. No new focal airspace opacities. No definite pleural effusion or pneumothorax. No evidence of edema. No acute osseus abnormalities. IMPRESSION: 1. No definite acute cardiopulmonary disease on this body habitus degraded AP portable examination. 2. Chronic left basilar opacities favored to represent a combination of atelectasis/scar and a prominent epicardial fat pad. Electronically Signed By: José Miguel Boswell M.D. On: 10/13/2016 08:03 Electronically
== END 2016-10-14 14:25 | DRG 193 ==
LOC: ED 08:58 → ICU 11:41 → PCU 10-12 17:58
PROVIDERS: ADMIT Family Medicine; ATTEND Internal Medicine
PROC: 039C3ZZ Drainage of Left Radial Artery, Percutaneous Approach (ICD-10-PCS; principal; 2016-10-08)
PROC: 5A09457 Assistance with Respiratory Ventilation, 24-96 Consecutive Hours, Continuous Positive Airway Pressure (ICD-10-PCS; 2016-10-08)
DX: J15.9 Unspecified bacterial pneumonia (principal); J96.22 Acute and chronic respiratory failure with hypercapnia; J96.21 Acute and chronic respiratory failure with hypoxia; Z99.81 Dependence on supplemental oxygen; J44.0 Chronic obstructive pulmonary disease with (acute) lower respiratory infection; Z68.42 Body mass index [BMI] 45.0-49.9, adult; J44.1 Chronic obstructive pulmonary disease with (acute) exacerbation; E11.65 Type 2 diabetes mellitus with hyperglycemia; K21.9 Gastro-esophageal reflux disease without esophagitis; I10 Essential (primary) hypertension; T38.0X5A Adverse effect of glucocorticoids and synthetic analogues, initial encounter; Y92.239 Unspecified place in hospital as the place of occurrence of the external cause; Z66 Do not resuscitate; E78.00 Pure hypercholesterolemia, unspecified; I51.9 Heart disease, unspecified; J45.909 Unspecified asthma, uncomplicated; Z87.01 Personal history of pneumonia (recurrent); M19.90 Unspecified osteoarthritis, unspecified site; M10.9 Gout, unspecified; F41.8 Other specified anxiety disorders; Z88.1 Allergy status to other antibiotic agents; Z88.5 Allergy status to narcotic agent; Z79.899 Other long term (current) drug therapy; Z87.891 Personal history of nicotine dependence; G47.33 Obstructive sleep apnea (adult) (pediatric); E66.01 Morbid (severe) obesity due to excess calories; F43.10 Post-traumatic stress disorder, unspecified
CPT/HCPCS: 36415; 36600; 71010; 80048; 80053; 80198; 80202; 81001; 82104; 82803; 82962; 83036; 83605; 83735; 84484; 85007; 85025; 85027; 85610; 85730; 87040; 87086; 87641; 87804; 93005; 94640; 94660; 96361; 96372; 96374; 96375; 98960; 99285; J0456; J0696; J1650; J1885; J1940; J2020; J2060; J2405; J2550; J2920; J2930; J3370; J3475; J3490; J7030; J7040; J7060; J7070; J7620